=== PATIENT | male | born 1940 | race Caucasian/White ===

== ENCOUNTER 2024-03-24 22:57 | Inpatient (IN) | payer MEDICARE, OTHER, SELFPAY ==
[2024-03-24] VITALS (7 sets, daily range): BP systolic 96–149; BP diastolic 64–85; BMI 25.6
[2024-03-24 18:19] LABS: % Basophils 0.3 % (0-2); % Eosinophils 0.1 % (0-6); % Immature Granulocytes 0.4 % (0-0.5); % Lymphocytes 18.5 % (20.5-51.1); % Monocytes 3.2 % (1.7-9.3); % Neutrophils 77.5 % (42.2-75.2); Absolute Immature Granulocytes 0.1 10^3/uL (0-0.05); Absolute Lymphocytes 2.5 10^3/uL (1.2-3.4); Absolute Monocytes 0.4 10^3/uL (0.1-0.6); Absolute Neutrophils 10.5 10^3/uL (1.4-6.5); Hematocrit 47.6 % (39.0-52.0); Hemoglobin 16.5 g/dL (13.0-18.0); Mean Corp Hgb Conc. 34.7 g/dL (33.0-37.0); Mean Corpuscular Hgb 33.3 pg (27.0-31.0); Mean Corpuscular Volume 96.2 fL (80.0-94.0); Mean Platelet Volume 10.2 fL (7.4-10.4); Nucleated Red Blood Cells % 0 % (-); Platelet Count 152 10^3/uL (130-400); Red Blood Cell Count 4.95 10^6/uL (4.70-6.10); Red Cell Dist. Width 14.6 % (11.5-14.5); White Blood Cell Count 13.6 10^3/uL (4.8-10.8)
[2024-03-24 18:35] LABS: Lactic Acid 3.8 mmol/L (0.7-2.0)
[2024-03-24 18:36] LABS: ALT (SGPT) 33 U/L (0-50); AST (SGOT) 23 U/L (17-59); Alkaline Phosphatase 83 U/L (38-126); Blood Urea Nitrogen 17 mg/dl (9-20); Calcium 10.1 mg/dl (8.4-10.2); Carbon Dioxide 28 mmol/L (22-30); Chloride 97 mmol/L (98-107); Glucose 107 mg/dl (70-99); Potassium 3.9 mmol/L (3.5-5.1); Sodium 140 mmol/L (135-145); Total Bilirubin 1.1 mg/dl (0.2-1.3); Total Protein 7.4 g/dl (6.3-8.2); eGFR > 60.00
[2024-03-24 18:49] LABS: COVID-19 Antigen Negative (Negative)
--- NOTE | 2024-03-24 20:00 | ED.GENMED ---
History of Present Illness
General
Chief Complaint: Fever
Source: patient, spouse and family
Time Seen by Provider: 03/24/24 19:43
History of Present Illness
History of Present Illness:
83-year-old male presents the emergency department after being noted to have a fever of 102 at approximately 4 AM this morning associated with 'disorientation' not typical of his baseline dementia. gave him Tylenol and he went back to bed. He
woke at 11:30 AM and ate breakfast and was given a repeat dose of Tylenol. states that he slept throughout the day and then when he woke up just prior to presentation she noted that he was shaking similar when he had sepsis in the past.
Patient denies any complaints. There is no history of recent sore throat, cough, urinary symptoms, abdominal pain, chest pain, dyspnea, or other complaints.
Past History
Past History
ED Past Medical History: Other (Dementia)
ED Past Surgical History: None
Social History
Tobacco: Non-smoker
Alcohol: None
Drug: None
Personal:
Living: with family
Phy Exam
Physical Exam
Physical Exam:
GENERAL: Alert , in no apparent distress
EYE: pupils equal and reactive, no photophobia
NECK: Supple, no significant adenopathy.
ENT: o/p clr, mm slightly dry
CARDIAC: Regular rate and rhythm, slightly tachycardic.
LUNGS: Equal breath sounds bilaterally, no acute respiratory distress, slight Rales noted at left base no wheezing or rhonchi noted
ABDOMEN: Soft, without focal tenderness, no r/g, no cvat
NEUROLOGICAL: Alert and oriented to person otherwise baseline dementia, no focal neuro deficits otherwise, [id number] normal, motor strength intact throughout, sensory intact to light touch
SKIN: Warm and dry, skin intact.
MUSCULOSKELETAL: No edema, well perfused.
PSYCH: Normal and appropriate interaction.
Sepsis
Sepsis Screening
Sepsis Assessment: Sepsis
Sepsis Screening: Lactate >2mmol/L
Sepsis Screen
Sepsis Screen: Sepsis
Date: 03/25/24
Time: 02:29
Course
Orders/Labs/Results
Orders:
Orders
03/24/24 17:51
Electrocardiogram (*1) Urgent
Reason for Study: Other
Other Reason for Exam: Possible Sepsis
03/24/24 17:52
EKG- Treatment ONCE
03/24/24 18:12
COVID-19 Antigen Urgent
Source: Nasal Swab
Complete Blood Count/With Diff Urgent
Comprehensive Metabolic Panel Urgent
Lactic Acid Urgent
Influenza A+B Rapid Molecular Urgent
AHMET Source: Nasal Swab
Specimen Description:
03/24/24 19:59
0.9% Sodium Chloride 1000 ml [Nss] 1,500 ml IV BOLUS
Acetaminophen [Tylenol] 1,000 mg PO NOW STA
CR Chest - 2 Views Urgent
Comment:
Reason For Exam: fever, rales L base
03/24/24 20:38
Blood Culture Routine
AHMET Source: Blood/Venous
Specimen Description:
Blood Culture Urgent
AHMET Source: Blood/Venous
Specimen Description:
03/24/24 20:49
0.9% Sodium Chloride 250 ml [Nss] 250 ml IV BOLUS
03/24/24 20:56
Urinalysis Reflex To Culture Urgent
Date Specimen was Collected: 03/24/24
Time Specimen was Collected: 20:55
Urine Microscopic Reflex Cult Urgent
03/24/24 21:37
Piperacillin/Tazo 4.5 Gram [Zosyn] 4.5 gram in 100 ml IV NOW
03/24/24 21:47
Vancomycin [Vancocin] 2,000 mg 0.9% Sodium Chloride 500 ml [Nss] 500 ml IV NOW
03/24/24 22:00
Flush (0.9% Sodium Chloride) [Flush (Nss)] See Dose Instructions IV PER PROTOCOL
03/24/24 22:25
Admit/Transfer Patient As Directed
Co-Sign Provider:
Level of Care: Inpatient admission
Assign to:: IMU- Intermediate Care
Physician / Group: nisha
Diagnosis: sepsis
Reason for Hospitalization: sepsis
Expected length of stay greater than two midnights?: Yes
ELOS- Estimated Length of Stay in days: 2
I certify the patient meets the requirements for IP care: Yes
03/24/24 22:27
Code Status As Directed
Resuscitation Status: Do not resuscitate
Reached after discussion with pt or family/Healthcare POA: Yes
DNR Bracelet Application ONCE
PRN Pain Medication Management As Directed
May give lesser potent ordered pain med per pt: Yes
preference::
Protocol:: Medication orders for pain may be administered in a
manner that supports deferring to patient preference
when the pt is:
- Requesting an ordered lesser potent pain medication.
Least to most potent pain medications are defined
as: acetaminophen < NSAID < tramadol < opioids
(morphine, oxycodone, hydromorphone).
- Requesting a lesser dose of the same medication IF
ORDERED.
- Requesting a less intrusive route of administration
if both routes are prescribed by the provider (PO <
IV).
03/25/24 00:08
0.9% Sodium Chloride 1000 ml [Nss] 1,000 ml IV 100 mls/hr
Acetaminophen [Tylenol] 650 mg PO Q4HPRN PRN
Dextrose 50%-Water [Dextrose 50% Syringe] 12.5 grams IV [id number] PRN
Glucagon [GlucaGen] 1 mg IM PRN PRN
Ondansetron Injectable [Zofran] 4 mg IV Q6HPRN PRN
VANCOMYCIN Pharmacy to Dose [VANCOCIN Pharmacy to Dose] 1 each Pharmacy To Prepare [Call Pharmacy To Prepare] 0 ml IV PER PROTOCOL
03/25/24 00:08
Activity As Directed
Activity Level: As Tolerated
Bedside Glucose Monitoring As Directed
Frequency: AC&HS
Additional Instructions:: Change to q6h if pt on TPN, tube feeding or not eating
Vital Signs As Directed
Frequency: Per unit guidelines
DX Deep Vein Thrombosis Video Routine
03/25/24 04:00
Piperacillin/Tazo 3.375 Gram [Zosyn] 3.375 gram in 50 ml IV Q6H
03/25/24 06:00
Complete Blood Count/With Diff IN AM
Comprehensive Metabolic Panel IN AM
Glycohemoglobin (HgbA1c) IN AM
03/25/24 07:30
Insulin Aspart Corrective Low [Novolog Flexpen-Low Resistance] See Protocol SC AC
03/25/24 08:00
Allopurinol [Zyloprim] 300 mg PO DAILY
Ascorbic Acid [Vitamin C] 500 mg PO DAILY
Brimonidine Tartrate/Timolol [Combigan Eye Drops] 1 drop BOTH EYES BID
Calcium Carbonate [Oscal Surjit 500] 500 mg PO DAILY
Heparin 5,000 units SC Q12
03/25/24 12:00
Cholecalciferol (Vitamin D3) [VITAMIN D3 (cholecalciferol)] 50 mcg PO NOON
Cyanocobalamin [Vitamin B-12] 1,000 mcg PO NOON
Multivitamin [Theragran] 1 tablet PO NOON
03/25/24 Dinner
2000 calorie (17 carb) Diabetic
At Your Request: Limited Participation
03/25/24 18:00
Atorvastatin [Lipitor] 10 mg PO QPM
03/25/24 22:00
Latanoprost [Xalatan Ophthalmic Solution] 1 drop BOTH EYES HS
Abnormal Lab Results
03/24/24 03/24/24
18:12 20:56
WBC 13.6 H 10^3/uL
(4.8-10.8)
MCV 96.2 H fL
(80.0-94.0)
MCH 33.3 H pg
(27.0-31.0)
RDW 14.6 H %
(11.5-14.5)
Abs Immat Gran (auto) 0.1 H 10^3/uL
(0-0.05)
Absolute Neuts (auto) 10.5 H 10^3/uL
(1.4-6.5)
Neutrophils % 77.5 H %
(42.2-75.2)
Lymphocytes % 18.5 L %
(20.5-51.1)
Chloride 97 L mmol/L
(98-107)
Glucose 107 H mg/dl
(70-99)
Lactic Acid 3.8 H mmol/L
(0.7-2.0)
Ur Occult Blood Reflex 4+ A
(Negative)
Leukocyte Esterase Rfl Trace A
(Negative)
Urine RBC >100 A /HPF
(0-2)
Urine Bacteria (Reflex) Few A
(Negative)
Urine Glucose 1+ A
(Negative)
03/24/24 18:12
03/24/24 18:12
Vital Signs
Initial and Last Documented VS:
Initial Vital Signs
Temp Pulse Resp BP Pulse Ox
98.1 F 104 20 149/79 95
03/24/24 17:51 03/24/24 17:51 03/24/24 17:51 03/24/24 17:51 03/24/24 17:51
Last Documented Vital Signs
Temp Pulse Resp BP Pulse Ox
98.8 F 79 20 140/82 94
03/25/24 00:30 03/25/24 01:45 03/25/24 01:45 03/25/24 01:00 03/25/24 01:45
*Critical Care Note
Total Time (30-74mins, 75-104mins- exclusive of procedures): Not Applicable
Update Note
Update Note:
Patient presents to the Emergency Department with __fever and confusion
Number and Complexity of Problems Addressed at the Encounter
� Chronic conditions affecting care:
� Acute Exacerbation and/or Progression of Chronic Illness:
� Differential Diagnosis includes: But not limited to sepsis, metabolic encephalopathy, pneumonia, UTI, COVID, etc. etc.
Amount and/or Complexity of Data to be Reviewed and Analyzed
� I performed an independent evaluation of and my interpretation is:
EKG:read by me, sinus tachy, no acute ischemia noted
CT:
Xrays:CXR READ by me, nad (unchange prior)
Laboratory Studies:new leukocytosis, elevated lactic, u/a not entirely convincing for UTI, hematuria noted
Other:
� Review of other/old records reveals: Patient hospitalized May 2023 with acute encephalopathy and similar symptoms
� Clinical information was obtained by an independent historian: and daughter who are at bedside
� Prescriptions/Medications Considered but not given:
� Further testing considered but not performed:
Risk of Complications and/or Morbidity or Mortality of Patient Management
� Social determinants of health affecting care:
� Discussion with other providers (PCP, Hospitalists, Consultants, etc):
� Escalation of care including admission/observation vs risk of discharge considered:overall suspect metabolic encephalopathy due to infction, unclear source. Although rales noted L base, no cough/st/dyspnea/hypoxia/cxr
findings. Follow blood csx, admit for further monitoring/ivf/abx for sepsis unclear origin
ED Attending Note
-
Portions of this chart may have been created with voice recognition software.� Occasional wrong word or��sound alike� substitutions may have occurred due to the inherent limitations of voice recognition software.
Discharge Plan
Departure
Patient Disposition: Admit
Date of Disposition: 03/24/24
Time of Disposition: 21:38
Admit to: Telemetry
Presentation/result/management discussed w/ accepting MD/DO: Hospitalist
Condition: Fair
Discharge Problem:
Sepsis
Interventions
Interventions:
*General Assessment Last Done: 03/24/24 19:46
*Neglect/Abuse Screening Last Done: 03/24/24 19:46
ED- Fall Risk Assessment Last Done: 03/24/24 20:46
*Nursing Disposition Last Done: 03/25/24 00:02
ED- Neurological Assessment Last Done: 03/24/24 19:44
ED-Skin Assessment Last Done: 03/24/24 19:44
Discharge Date and Time
Discharge Date/Time: 03/25/24 00:02
[2024-03-24] MEDS: TYLENOL 1000 MG PO (20:36)
[2024-03-24] MEDS: NSS 1500 IV (20:37)
--- NOTE | 2024-03-24 20:45 | EDRN ---
RN attempted straight catheterization x 2, using both regular catheter and coude catheter, unsuccessful. Perineal hygiene complete, [place] external male catheter placed.
[2024-03-24 21:00] LABS: Urine Albumin Trace (Neg - Trace); Urine Bilirubin Negative (Negative); Urine Character Slightly Cloudy (Clear); Urine Color Yellow; Urine Glucose 1+ (Negative); Urine Ketone Negative (Negative); Urine Leukocyte Trace (Negative); Urine Nitrite Negative (Negative); Urine Occult Blood 4+ (Negative); Urine Specific Gravity 1.015 (<1.030); Urine Urobilinogen Negative (Neg - 1+)
[2024-03-24 21:06] LABS: Urine Red Blood Cell >100 /HPF (0-2)
[2024-03-24 21:07] LABS: Urine Bacteria Few (Negative)
[2024-03-24] MEDS: NSS 250 IV (21:28)
[2024-03-24] MEDS: ZOSYN 100 IV (21:49)
[2024-03-24] MEDS: VANCOCIN 540 MG IV (22:25)
--- NOTE | 2024-03-24 22:38 | HPS.HSE ---
Family Physician
-
Family Physician: Sohail Ma
Chief Complaint
-
fever
History of Present Illness
83-year-old male past medical history of dementia, gout, hypertension, hyperlipidemia, diabetes, presenting with fever of 102 this morning associate with disorientation which is not typical of his baseline dementia. gave him Tylenol and he
went back to bed. He woke up at 1130 and took another dose of Tylenol. He slept throughout the day and woke up just prior to presentation with chills. He denies sore throat, cough, urinary symptoms, abdominal pain, chest pain or shortness of
breath or any other symptoms.
Patient chipped a piece of his tooth a few days ago and did complain of some mild discomfort but denies any swelling in the mouth.
Patient denies any history of hardware in his body including artificial valve or hip.
Patient had sepsis in 2019 while he was in [place] and no source was found at that time either.
Medical History
Past Medical History
Past Medical History: Reports Other (dementia, gout, hypertension, hyperlipidemia, diabetes)
Past Surgical History: Reports None
Social History
Tobacco: Non-smoker
Alcohol: None
Drug: None
Family History
Family History: Not pertinent
Allergies / Home Medications
Allergies reflects when Allergies were last updated in [employer].
Home Medications with original date entered in [facility]
Allergy/Medication List:
Allergies
Allergy/AdvReac Type Severity Reaction Status Date / Time
Sulfa (Sulfonamide Allergy Unknown Unknown Verified 03/24/24 17:55
Antibiotics)
NSAIDS (Non-Steroidal Allergy Johnson Verified 03/24/24 17:55
Anti-Inflamma [place]
Home Medications
allopurinol 300 mg tablet 300 mg PO DAILY Gout 06/25/23
amlodipine 5 mg tablet (Norvasc) 5 mg PO DAILY Blood Pressure 06/25/23
atorvastatin 10 mg tablet (Lipitor) 10 mg PO QPM High Cholesterol 06/25/23
bimatoprost 0.01 % eye drops (Lumigan) 1 drp BOTH EYES HS Eye Condition 06/25/23
brimonidine 0.2 %-timolol 0.5 % eye drops (Combigan) 1 drp BOTH EYES BID Eye Condition 06/25/23
cholecalciferol (vitamin D3) 25 mcg (1,000 unit) chewable tablet (Vitamin D3) 50 mcg PO NOON Supplement 06/25/23
cyanocobalamin (vitamin B-12) 1,000 mcg sublingual lozenge 1,000 mcg sublingual NOON Supplement 06/25/23
gabapentin 800 mg tablet 400 mg PO BID Neurological Condition 06/25/23
glipizide 10 mg tablet, extended release 24 hr 20 mg PO DAILY Diabetes 06/25/23
indapamide 2.5 mg tablet 2.5 mg PO DAILY Fluid Retention/Swelling 06/25/23
lisinopril 40 mg tablet 40 mg PO DAILY Blood Pressure 06/25/23
metformin 500 mg tablet,extended release 24hr (osmotic) 1,000 mg PO BID@0800,1700 Diabetes 06/25/23
vnzximdl-csmdasqi-ltrm 8 mg-folic ac 400 mcg-vit K 10 mcg chew tablet (Centrum Chewables) 1 tab PO NOON Supplement 06/25/23
netarsudil 0.02 % eye drops (Rhopressa) 1 drp BOTH EYES HS Eye Condition 06/25/23
saw palm 160 mg-vit E 100 unit-selen 100 mae-myen-tdidxu-pygeum tablet (Prostate Health) 1 tab PO QPM Supplement 06/25/23
ascorbic acid (vitamin C) 500 mg chewable tablet (Vitamin C) 500 mg PO DAILY 03/24/24
calcium carbonate (Calcium 500) 500 mg PO DAILY 03/24/24
Review of Systems
-
History Source: Patient
A 12 point ROS was completed and negative except as noted: Yes
Constitutional: Reports Fever
EENT: Reports No Symptoms
Respiratory: Reports No Symptoms
Cardiac: Reports No Symptoms
Abdomen/GI: Reports No Symptoms
: Reports No Symptoms
Musculoskeletal: Reports No Symptoms
Skin: Reports No Symptoms
Neurological: Reports No Symptoms
Endocrine: Reports No Symptoms
Hematologic/Lymphatic: Reports No Symptoms
Psych: Reports No Symptoms
Physical Exam
Vital Signs
Vital Signs
Temp Pulse Resp BP Pulse Ox
98.9 F 85 16 96/64 94
03/24/24 21:34 03/24/24 22:00 03/24/24 22:00 03/24/24 22:00 03/24/24 22:00
Physical Exam
General: Well Developed, Well Nourished and No Apparent Distress
HEENT: NormoCephalic, Moist mucous membranes and Atraumatic
Respiratory: Clear
Cardiac: S1/S2 and Regular Rhythm; No Murmur or Rub
GI: Soft, Non Tender, Non Distended and Normal Bowel Sounds; No Organomegaly
Rectal: Deferred by Provider
Musculoskeletal: No Clubbing, No Cyanosis and No Edema
Skin: No Rash
Neuro: Nonfocal/grossly intact
Laboratory Results
-
03/24/24 18:12
03/24/24 18:12
Laboratory Results
Lactic Acid 3.8 mmol/L (0.7-2.0) H 03/24/24 18:12
Total Bilirubin 1.1 mg/dl (0.2-1.3) 03/24/24 18:12
AST 23 U/L (17-59) 03/24/24 18:12
ALT 33 U/L (0-50) 03/24/24 18:12
Alkaline Phosphatase 83 U/L (38-126) 03/24/24 18:12
Data Reviewed
-
Lab Data: Labs Reviewed by me
Old Records: Reviewed
Impression/Plan
-
IMPRESSION:
PLAN:
# SIRS (fever, leukocytosis, hypotension)/metabolic encephalopathy unclear source, evaluate for bacteremia
-No clear localizing symptoms
-Chest x-ray unremarkable
-Urinalysis not convincing for UTI
-Check blood cultures
-IV fluids
-Vancomycin/Zosyn
-Hold gabapentin
-Hold indapamide
Dementia
Essential hypertension
-Hold amlodipine
-Hold lisinopril
Gout
-Continue allopurinol
Hyperlipidemia
-Continue statin
Lower extremity edema
-Hold indapamide
Type 2 diabetes
-Hold glipizide
-Hold metformin
-Insulin sliding scale
DNR/DNI
DVT prophylaxis heparin
Diabetic diet
[2024-03-25] VITALS (18 sets, daily range): BP systolic 116–150; BP diastolic 61–92; PULSE 81; O2SAT 94; BMI 26.4
[2024-03-25 00:17] LABS: Lactic Acid 3.1 mmol/L (0.7-2.0)
[2024-03-25] MEDS: NSS 1000 IV ×2 (01:02→09:15)
--- NOTE | 2024-03-25 01:10 | PTCARENOTE ---
patient received from ED, assessments per work list. poor historian, forgetful. bladder scan per work list. hospitalist PARALEGAL INSTRUCTOR updated. patient stood at bedside, he was unable to void, unsteady gait. attempted straight cath, unable. patient then
spontaneously voided in urinal with assist. PVR per work list. PARALEGAL INSTRUCTOR updated. monitor nsr with pvc. lungs with crackles left base. call palacio in reach, bed alarm activated
[2024-03-25] MEDS: ZOSYN 50 IV ×4 (02:54→21:00)
[2024-03-25 04:35] LABS: % Basophils 0.2 % (0-2); % Eosinophils 0.2 % (0-6); % Immature Granulocytes 0.4 % (0-0.5); % Lymphocytes 22.8 % (20.5-51.1); % Monocytes 4.2 % (1.7-9.3); % Neutrophils 72.2 % (42.2-75.2); Absolute Lymphocytes 1.9 10^3/uL (1.2-3.4); Absolute Monocytes 0.4 10^3/uL (0.1-0.6); Hematocrit 40.6 % (39.0-52.0); Hemoglobin 14.2 g/dL (13.0-18.0); Mean Corpuscular Hgb 33.9 pg (27.0-31.0); Mean Corpuscular Volume 96.9 fL (80.0-94.0); Mean Platelet Volume 10.4 fL (7.4-10.4); Nucleated Red Blood Cells % 0 % (-); Platelet Count 120 10^3/uL (130-400); Red Blood Cell Count 4.19 10^6/uL (4.70-6.10); Red Cell Dist. Width 14.6 % (11.5-14.5); White Blood Cell Count 8.3 10^3/uL (4.8-10.8)
[2024-03-25 04:53] LABS: ALT (SGPT) 28 U/L (0-50); AST (SGOT) 26 U/L (17-59); Albumin 3.7 g/dl (3.5-5.0); Alkaline Phosphatase 64 U/L (38-126); Blood Urea Nitrogen 16 mg/dl (9-20); Calcium 8.7 mg/dl (8.4-10.2); Carbon Dioxide 27 mmol/L (22-30); Chloride 103 mmol/L (98-107); Estimated Creatinine Clearance 59 ml/min; Glucose 69 mg/dl (70-99); Potassium 3.8 mmol/L (3.5-5.1); Sodium 141 mmol/L (135-145); Total Bilirubin 1.1 mg/dl (0.2-1.3); Total Protein 5.9 g/dl (6.3-8.2); eGFR > 60.00
[2024-03-25 05:56] LABS: Glucose - Point of Care 92 mg/dl (70-99)
--- NOTE | 2024-03-25 08:00 | PTCARENOTE ---
Assumed care of patient at 0645, assessment completed and documented appropriately on worklist.
Patient is pleasant, AAOx3 and forgetful at times. NS at 100 mL/hour infusing through R FA. SR on monitor.
--- NOTE | 2024-03-25 08:19 | PHA.VAN.IN ---
Assessment
- Assessment
Renal Function: Appears similar to baseline
Concomitant Antimicrobials: piperacillin/tazobactam
AUC Dosing Plan
- Dosing Variables
Dosing Weight (kg): 83
Dosing CrCl (ml/min): 59
Vd coefficient (L/kg): 0.7
- Empiric Dosing
Initial / Loading Dose: 2000mg - 03/24 22:25
Maintenance Regimen: Vanc 1500mg Q24H - first dose at noon then 0600
Estimated AUC (mcg*h/mL): 503
Estimated Peak (mcg*h/mL): 35.7
Estimated Trough (mcg/ml): 10.8
Estimated Half Life (H): 13
May require dose adjustment depending on trend of renal function
- Monitoring
No levels ordered at this time: consider levels in next few days
Pharmacokinetics Vancomycin I
- -
Patient Age: 83
Patient Sex: Male
Vancomycin Day #: 1
Indication: Bacteremia
Requesting Provider: Dr. Shah
Pertinent Antimicrobial Allergies:
sulfonamide antibiotics - unknown
Height / Weight:
Height 5 ft 10 in
Actual Weight 83.461 kg
Pertinent Past Medical History: DM 2
- Vital Signs / Lab Results
Temp Pulse Resp BP Pulse Ox
99 F 92 25 138/83 94
03/25/24 07:45 03/25/24 07:00 03/25/24 07:00 03/25/24 07:00 03/25/24 07:00
Lab Results - Hematology
03/24/24 03/25/24
18:12 04:05
WBC 13.6 H 8.3
Lab Results - Chemistry
03/24/24 03/25/24
18:12 04:05
BUN 17 16
Creatinine 1.2 1.0
Estimated Creat Clear 59
Albumin 5.0 3.7
03/24/24 03/24/24 03/25/24
18:12 23:59 04:05
Lactic Acid 3.8 H 3.1 H 2.0
Lab Results - Urine
03/24/24
20:56
Urine Nitrite (Reflex) Negative
Leukocyte Esterase Rfl Trace A
Urine WBC (Reflex) 3-5
Ur Squamous Epith Cells 3-5
Urine Bacteria (Reflex) Few A
Microbiology Results
03/24/24 18:12 Influenza Types A & B (MANUEL) - Final
Nasal Swab Negative for Influenza A & B, NAAT
Negative results must be combined with clinical observations
and patient history.
Nucleic Acid Amplification test (NAAT)performed on the
[employer] ID NOW platform.
[2024-03-25] MEDS: OSCAL CAL 500 500 MG PO (08:59)
[2024-03-25] MEDS: HEPARIN 5000 UNITS SC (08:59)
[2024-03-25] MEDS: VITAMIN C 500 MG PO (08:59)
[2024-03-25] MEDS: COMBIGAN EYE DROPS 1 DROP BOTH EYES ×2 (08:59→20:57)
[2024-03-25] MEDS: ZYLOPRIM 300 MG PO (08:59)
[2024-03-25 09:08] LABS: Glycohemoglobin (HgbA1c) 6.6 % (4.0-5.6)
[2024-03-25] MEDS: NOVOLOG FLEXPEN-LOW RESISTANCE SC ×2 (09:18→11:54)
[2024-03-25 09:29] LABS: Glucose - Point of Care 99 mg/dl (70-99)
--- NOTE | 2024-03-25 10:00 | PTCARENOTE ---
Noted red raised markings on left and right arm. Notified covering provider. Patient unsure where they came from. Does not hurt, no drainage.
--- NOTE | 2024-03-25 10:22 | W.PN.HOSP.TC ---
Today's Communication/Plan
-
dc vanc
await Bcx data
Transfer out of IMU
Rehab
DC fluids and observe
Assessment / Plan
Assessment / Plan
# SIRS (fever, leukocytosis, hypotension) unclear source, r/o bacteremia versus viral infection
#Toxic metabolic encephalopathy likeely 2/2 fevers vs. gabapentin vs. worsening underlying cognitive impairment
#Lactic acidosis resolved
-No clear localizing symptoms
-Chest x-ray unremarkable
-Urinalysis not convincing for UTI
-COVID and influenza negative.
-Check blood cultures
-IV fluids
-De-escalate antibiotics on culture data. No prior history of myself. DC Vanco. Continue Zosyn for 24 hours for now
-Hold gabapentin
-Trend WBC and fever curve. Leukocytosis resolved.
Essential hypertension
-Blood pressure slowly starting to improve. Restart BP meds Norvasc and lisinopril with hold parameters
Gout
-Continue allopurinol
Hyperlipidemia
-Continue statin
Lower extremity edema
-Hold indapamide
Type 2 diabetes
-Hold glipizide
-Hold metformin
-A1c of 6.6
-Insulin sliding scale
'
Thrombocytopenia
-dc hep for now.
Hx of porphyria unspecfified type
DNR/DNI
DVT prophylaxis scds with platelet drop
PT/OT
Anticipated Discharge: > 48 hours
Subjective/Interval History
-
Date of Service: March 25, 2024
Feeling mildly better
Denies any sore throat or productive cough or diarrhea or dysuria
Denies any sick contact
Objective Data
-
Labs:
Laboratory Results
03/25/24
04:05
WBC 8.3
Hgb 14.2
Hct 40.6
Plt Count 120 L D
Sodium 141
Potassium 3.8
Chloride 103
Carbon Dioxide 27
BUN 16
Creatinine 1.0
Glucose 69 L
Calcium 8.7
Total Bilirubin 1.1
AST 26
ALT 28
Alkaline Phosphatase 64
Vital Signs:
Vital Signs
Temp Pulse Resp BP Pulse Ox
99 F 86 15 141/89 93
03/25/24 07:45 03/25/24 10:00 03/25/24 10:00 03/25/24 10:00 03/25/24 08:00
I&O
03/24/24 03/25/24 03/26/24
06:59 06:59 06:59
Intake Total 550 / 650 300 / 300
Output Total 695 / 695 500 / 500
Balance -145 / -45 -200 / -200
Physical Exam
-
General: Well Developed, Well Nourished, No Apparent Distress, Comfortable and Conversant; Negative Respiratory Distress
HEENT: Normocephalic, Atraumatic, Nose Appears Normal and Ears Appear Normal; Negative Oxygen
Respiratory: Clear to Auscultation and Non Labored Respirations; Negative Accessory Resp Muscle Use
Cardiac: Regular Rhythm and S1/S2
GI: Soft, Nontender, Nondistended and Normal Bowel Sounds
Skin: Warm, Dry and Rash
Neuro: Awake and No Motor Deficits
Psych: Calm
Data Reviewed
-
Total Time Spent with Patient (in minutes): 56
[2024-03-25 12:05] LABS: Glucose - Point of Care 120 mg/dl (70-99)
[2024-03-25] MEDS: VITAMIN D3 (cholecalciferol) 50 MCG PO (12:36)
[2024-03-25] MEDS: VITAMIN B-12 1000 MCG PO (12:36)
[2024-03-25] MEDS: THERAGRAN 1 TABLET PO (12:36)
--- NOTE | 2024-03-25 13:25 | PTCARENOTE ---
Report given to Carl on 4W. Assisted patient into WC. Taken to 4W by Transport.
--- NOTE | 2024-03-25 13:37 | TRANSFER ---
Patient transferred from ICU into room 417-1. Pt AAOx3 with history of dementia, bed alarm activated. Pt feels 'great' and denies any acute complaints at this time. Oriented to room, call palacio within reach.
[2024-03-25 14:20] LABS: Glucose - Point of Care 225 mg/dl (70-99)
[2024-03-25 17:11] LABS: Glucose - Point of Care 247 mg/dl (70-99)
[2024-03-25] MEDS: NOVOLOG FLEXPEN-LOW RESISTANCE 2 UNITS SC (17:27)
[2024-03-25] MEDS: LIPITOR 10 MG PO (17:27)
[2024-03-25] MEDS: NON-FORMULARY ITEM 1 DROP BOTH EYES (20:59)
[2024-03-25] MEDS: XALATAN OPHTHALMIC SOLUTION 1 DROP BOTH EYES (20:59)
[2024-03-26] MEDS: ZOSYN 50 IV ×2 (03:11→10:24)
[2024-03-26 07:00] VITALS: BP 136/79
[2024-03-26 08:45] LABS: % Basophils 0.5 % (0-2); % Eosinophils 1.8 % (0-6); % Immature Granulocytes 0.5 % (0-0.5); % Lymphocytes 35.7 % (20.5-51.1); % Monocytes 8.3 % (1.7-9.3); % Neutrophils 53.2 % (42.2-75.2); Absolute Eosinophils 0.1 10^3/uL (0-0.7); Absolute Lymphocytes 2.1 10^3/uL (1.2-3.4); Absolute Monocytes 0.5 10^3/uL (0.1-0.6); Absolute Neutrophils 3.2 10^3/uL (1.4-6.5); Hematocrit 38.7 % (39.0-52.0); Hemoglobin 13.6 g/dL (13.0-18.0); Mean Corp Hgb Conc. 35.1 g/dL (33.0-37.0); Mean Corpuscular Hgb 32.4 pg (27.0-31.0); Mean Corpuscular Volume 92.1 fL (80.0-94.0); Mean Platelet Volume 10.6 fL (7.4-10.4); Nucleated Red Blood Cells % 0 % (-); Platelet Count 128 10^3/uL (130-400); Red Cell Dist. Width 14.4 % (11.5-14.5)
[2024-03-26 09:11] LABS: Blood Urea Nitrogen 10 mg/dl (9-20); Calcium 8.8 mg/dl (8.4-10.2); Carbon Dioxide 22 mmol/L (22-30); Chloride 103 mmol/L (98-107); Estimated Creatinine Clearance 59 ml/min; Glucose 166 mg/dl (70-99); Potassium 3.6 mmol/L (3.5-5.1); Sodium 140 mmol/L (135-145); eGFR > 60.00
[2024-03-26 09:35] LABS: Glucose - Point of Care 155 mg/dl (70-99)
--- NOTE | 2024-03-26 10:07 | CM ---
Pt seen at beside. Pt has BL dementia but is oriented and alert.
Pt confirms that he lives in a 2 story home with his . Pt does not drive.
He does not use any DME at home, no hx of SNF or PT/OT services.
He confirms there is no transportation/food/home insecurities. His will transport home at d/c.
Pt confirms pharmacy is [facility] in [place]. PCP confirmed.
Pt agreeable to HC recommendation at d/c. States he will discuss HC agencies with .
Plan: Home with home care services
[2024-03-26] MEDS: NOVOLOG FLEXPEN-LOW RESISTANCE 1 UNITS SC ×2 (10:23→17:55)
[2024-03-26] MEDS: NORVASC 5 MG PO (10:24)
[2024-03-26] MEDS: ZESTRIL 40 MG PO (10:24)
[2024-03-26] MEDS: OSCAL CAL 500 500 MG PO (10:24)
[2024-03-26] MEDS: VITAMIN C 500 MG PO (10:24)
[2024-03-26] MEDS: COMBIGAN EYE DROPS 1 DROP BOTH EYES ×2 (10:26→20:30)
[2024-03-26] MEDS: ZYLOPRIM 300 MG PO (10:30)
--- NOTE | 2024-03-26 11:20 | W.PN.HOSP.TC ---
Today's Communication/Plan
-
restart DM meds
dc zosyn
Assessment / Plan
Assessment / Plan
# SIRS (fever, leukocytosis, hypotension) unclear source, r/o bacteremia versus viral infection
#Toxic metabolic encephalopathy likely 2/2 fevers vs. gabapentin vs. worsening underlying cognitive impairment
#Lactic acidosis resolved
-No clear localizing symptoms
-Chest x-ray unremarkable
-Urinalysis not convincing for UTI
-COVID and influenza negative.
-Check blood cultures-prelim is negative.
-IV fluids Dced
-De-escalate antibiotics on culture data. No prior history of myself. DC Vanco. Dc zosyn today
-restart gabapentin
-Trend WBC and fever curve. Leukocytosis resolved. Remains afebrile for 24h
Essential hypertension
-Blood pressure slowly starting to improve. Restart BP meds Norvasc and lisinopril with hold parameters
Gout
-Continue allopurinol
Hyperlipidemia
-Continue statin
Lower extremity edema
-restart indapamide
Type 2 diabetes
-Restart glipizide and metformin
-A1c of 6.6
-Insulin sliding scale
'
Thrombocytopenia
-dc hep for now.
-Platelets improving
Hx of porphyria unspecified type
DNR/DNI
DVT prophylaxis scds with platelet drop
PT/OT -Home VN
Anticipated Discharge: Within 24 hours
Subjective/Interval History
-
Date of Service: March 26, 2024
feeling alot better
afebrile
tolerating diet
no cough/nausea/vomiting/diarrhea/dysuria
Objective Data
-
Labs:
Laboratory Results
03/26/24
08:25
WBC 6.0
Hgb 13.6
Hct 38.7 L
Plt Count 128 L
Sodium 140
Potassium 3.6
Chloride 103
Carbon Dioxide 22
BUN 10
Creatinine 1.0
Glucose 166 H
Calcium 8.8
Vital Signs:
Vital Signs
Temp Pulse Resp BP Pulse Ox
98 F 72 20 136/79 95
03/26/24 07:00 03/26/24 07:00 03/26/24 07:00 03/26/24 07:00 03/26/24 07:00
I&O
03/25/24 03/26/24 03/27/24
06:59 06:59 06:59
Intake Total 550 / 650 880 / 880
Output Total 695 / 695 1800 / 1800
Balance -145 / -45 -920 / -920
Physical Exam
-
General: Well Developed, Well Nourished, No Apparent Distress, Comfortable and Conversant; Negative Respiratory Distress
HEENT: Normocephalic, Atraumatic, Nose Appears Normal and Ears Appear Normal; Negative Oxygen
Respiratory: Clear to Auscultation and Non Labored Respirations; Negative Accessory Resp Muscle Use
Cardiac: Regular Rhythm and S1/S2
GI: Soft, Nontender, Nondistended and Normal Bowel Sounds
Skin: Warm, Dry and Rash (Chronic B/L forearm thick macular rash noted)
Neuro: Awake and No Motor Deficits
Psych: Calm
[2024-03-26 12:06] LABS: Glucose - Point of Care 222 mg/dl (70-99)
[2024-03-26] MEDS: VITAMIN D3 (cholecalciferol) 50 MCG PO (12:17)
[2024-03-26] MEDS: NOVOLOG FLEXPEN-LOW RESISTANCE 2 UNITS SC (12:17)
[2024-03-26] MEDS: VITAMIN B-12 1000 MCG PO (12:17)
[2024-03-26] MEDS: THERAGRAN 1 TABLET PO (12:17)
--- NOTE | 2024-03-26 12:58 | VNURNOTE ---
Home Health Liaison met spoke with patient's spouse Lillian to discuss [facility] nurse/therapy, visits, schedule and homebound status. She is agreeable and understands that visits at home will be 2-3 x per week to assess and teach medical management. She
manages patient's meds and confirmed patient does not drive. She is aware that [facility] will contact them for start of care in 1-2 days after discharge from .
[facility] referral completed in [facility].
[2024-03-26 15:00] VITALS: BP 134/81
--- NOTE | 2024-03-26 15:03 | PTCARENOTE ---
Patient has no c/o pain, resting comfortably. Patient is OOB with assist x1, ambulated to door way and then bathroom with a weak but steady gait. Family at bedside.
[2024-03-26 16:58] LABS: Glucose - Point of Care 163 mg/dl (70-99)
[2024-03-26] MEDS: GLUCOPHAGE XR EXTENDED RELEASE 1000 MG PO (17:55)
[2024-03-26] MEDS: LIPITOR 10 MG PO (17:55)
[2024-03-26] MEDS: NEURONTIN 400 MG PO (20:30)
[2024-03-26 21:31] LABS: Glucose - Point of Care 163 mg/dl (70-99)
[2024-03-26] MEDS: XALATAN OPHTHALMIC SOLUTION 1 DROP BOTH EYES (22:16)
[2024-03-26] MEDS: NON-FORMULARY ITEM 1 DROP BOTH EYES (22:44)
[2024-03-26 23:39] VITALS: BP 115/58
[2024-03-27 07:06] VITALS: BP 162/84
[2024-03-27 07:14] LABS: % Basophils 0.6 % (0-2); % Eosinophils 2.2 % (0-6); % Immature Granulocytes 0.4 % (0-0.5); % Lymphocytes 47.9 % (20.5-51.1); % Monocytes 4.3 % (1.7-9.3); % Neutrophils 44.6 % (42.2-75.2); Absolute Eosinophils 0.2 10^3/uL (0-0.7); Absolute Lymphocytes 3.5 10^3/uL (1.2-3.4); Absolute Monocytes 0.3 10^3/uL (0.1-0.6); Absolute Neutrophils 3.2 10^3/uL (1.4-6.5); Hematocrit 42.8 % (39.0-52.0); Hemoglobin 15.1 g/dL (13.0-18.0); Mean Corp Hgb Conc. 35.3 g/dL (33.0-37.0); Mean Corpuscular Hgb 33.3 pg (27.0-31.0); Mean Corpuscular Volume 94.3 fL (80.0-94.0); Mean Platelet Volume 10.6 fL (7.4-10.4); Nucleated Red Blood Cells % 0 % (-); Platelet Count 137 10^3/uL (130-400); Red Blood Cell Count 4.54 10^6/uL (4.70-6.10); Red Cell Dist. Width 14.4 % (11.5-14.5); White Blood Cell Count 7.2 10^3/uL (4.8-10.8)
[2024-03-27 07:30] LABS: Glucose - Point of Care 162 mg/dl (70-99)
[2024-03-27] MEDS: NOVOLOG FLEXPEN-LOW RESISTANCE 1 UNITS SC (08:15)
[2024-03-27] MEDS: COMBIGAN EYE DROPS 1 DROP BOTH EYES (08:16)
[2024-03-27] MEDS: ZESTRIL 40 MG PO (08:16)
[2024-03-27] MEDS: GLUCOTROL XL (EXTENDED RELEASE) 20 MG PO (08:17)
[2024-03-27] MEDS: GLUCOPHAGE XR EXTENDED RELEASE 1000 MG PO (08:17)
[2024-03-27] MEDS: OSCAL CAL 500 500 MG PO (08:17)
[2024-03-27] MEDS: NORVASC 5 MG PO (08:17)
[2024-03-27] MEDS: LOZOL 2.5 MG PO (08:17)
[2024-03-27] MEDS: NEURONTIN 400 MG PO (08:18)
[2024-03-27] MEDS: VITAMIN C 500 MG PO (08:18)
[2024-03-27] MEDS: ZYLOPRIM 300 MG PO (08:21)
--- NOTE | 2024-03-27 09:56 | W.PN.HOSP.TC ---
Today's Communication/Plan
-
dc home
Assessment / Plan
Assessment / Plan
# Sepsis (fever, leukocytosis, hypotension) secondary to viral infection-poa
#Toxic metabolic encephalopathy likely 2/2 fevers vs. gabapentin vs. worsening underlying cognitive impairment
#Lactic acidosis resolved
-No clear localizing symptoms
-Chest x-ray unremarkable
-Urinalysis not convincing for UTI
-COVID and influenza negative.
-Blood culture remains negative.
-IV fluids Dced
-De-escalate antibiotics on culture data. Patient remained afebrile off antibiotics.
-restart gabapentin
-Trend WBC and fever curve. Leukocytosis resolved. Remains afebrile
Essential hypertension
Restart BP meds Norvasc and lisinopril with hold parameters
Gout
-Continue allopurinol
Hyperlipidemia
-Continue statin
Lower extremity edema
-restart indapamide
Type 2 diabetes
-Restart glipizide and metformin
-A1c of 6.6
-Insulin sliding scale
'
Thrombocytopenia
-dc hep for now.
-Platelets improved.
Hx of porphyria unspecified type
DNR/DNI
DVT prophylaxis scds with platelet drop
PT/OT -Home [facility]
More than 30 minutes spent in discharge including
Final examination of the patient
Summarizing hospital stay
Instructions for continuing care to all relevant caregivers
Preparation of discharge records, prescriptions, and referral forms
Total time spent (in minutes): 53
Anticipated Discharge: Today
Subjective/Interval History
-
Date of Service: March 27, 2024
Slept well last night
Remains afebrile
Tolerating diet
Objective Data
-
Labs:
Laboratory Results
03/27/24
06:05
WBC 7.2
Hgb 15.1
Hct 42.8
Plt Count 137
Vital Signs:
Vital Signs
Temp Pulse Resp BP Pulse Ox
98.2 F 64 18 162/84 98
03/27/24 07:06 03/27/24 08:16 03/27/24 07:06 03/27/24 08:16 03/27/24 07:06
I&O
03/26/24 03/27/24 03/28/24
06:59 06:59 06:59
Intake Total 880 / 880 1010 / 1010
Output Total 1800 / 1800 400 / 400
Balance -920 / -920 610 / 610
Physical Exam
-
General: Well Developed, Well Nourished, No Apparent Distress, Comfortable and Conversant; Negative Respiratory Distress
HEENT: Normocephalic, Atraumatic, Nose Appears Normal and Ears Appear Normal; Negative Oxygen
Respiratory: Clear to Auscultation and Non Labored Respirations; Negative Accessory Resp Muscle Use
Cardiac: Regular Rhythm and S1/S2
GI: Soft, Nontender, Nondistended and Normal Bowel Sounds
Skin: Warm, Dry and Rash (Chronic B/L forearm thick macular rash noted)
Neuro: Awake and No Motor Deficits
Psych: Calm
--- NOTE | 2024-03-27 10:00 | W.DCSUMMARY ---
Discharge Summary
Discharge Data
Date of Admission: 03/24/24
Date of Discharge: 03/27/24
-
Pending Results: No
Hospital Course
83-year-old male past medical history of hypertension, CAD, hyperlipidemia, diabetes melitis, Hx of porphyria unspecified type was presenting from home with fever and confusion. Patient underwent infectious workup. UA which was not convincing for
UTI. COVID and influenza was found to be negative. Blood cultures were checked and found to be negative. No cough. No diarrhea. No dysuria. No abdomen pain or flank pain. Patient was started initially on broad-spectrum antibiotics.
Antibiotics were slowly de-escalated. Patient remained afebrile for greater than 48 hours. IV fluids were discontinued. Patient mentation back to baseline. White count within normal limits. Patient blood pressure meds were restarted. Patient
was tolerating diet. Patient remained afebrile off antibiotics and thus, is likely a viral infection. Patient be discharged home with [facility].
Discharge Plan
-
Patient Disposition: Home with Home Care
Discharge Diagnosis/Procedures: Toxic metabolic encephalopathy
Fevers secondary to viral infection
Thrombocytopenia resolved
Lactic acidosis
Condition: Fair
Diet: Diabetic, Carb Controlled
Activity: With assistance and As tolerated
Driving Restrictions: As prior to admission
Other Services: [facility]
Referrals:
Sohail Ma MD [Family Provider] - in less than 1 week
Prescriptions:
Continued
atorvastatin [Lipitor] 10 mg Tablet
10 mg PO QPM
indapamide 2.5 mg Tablet
2.5 mg PO DAILY
glipizide 10 mg Tablet Extended Release 24hr
20 mg PO DAILY
amlodipine [Norvasc] 5 mg Tablet
5 mg PO DAILY
gabapentin 800 mg Tablet
400 mg PO BID
allopurinol 300 mg Tablet
300 mg PO DAILY
lisinopril 40 mg Tablet
40 mg PO DAILY
metformin 500 mg Tablet Extended Release 24 Hr
1,000 mg PO BID@0800,1700
brimonidine-timolol [Combigan] 0.2-0.5 % Drops
1 drp BOTH EYES BID
cholecalciferol (vitamin D3) [Vitamin D3] 25 mcg (1,000 unit) Tablet,Chewable
50 mcg PO NOON
Lumigan 0.01 % Drops
1 drp BOTH EYES HS
Prostate Health 160-100-100 mg-unit-mcg Tablet
1 tab PO QPM
cyanocobalamin (vitamin B-12) 1,000 mcg Lozenge
1,000 mcg SUBLINGUAL NOON
Rhopressa 0.02 % Drops
1 drp BOTH EYES HS
Centrum Chewables 8 mg-400 mcg- 10 mcg Tablet,Chewable
1 tab PO NOON
ascorbic acid (vitamin C) [Vitamin C] 500 mg Tablet,Chewable
500 mg PO DAILY
calcium carbonate [Calcium 500] 500 mg calcium (1,250 mg) Tablet,Chewable
500 mg PO DAILY
Discharge Orders:
Discharge Patient (As Directed); Ordered 03/27/24
Ordered By: Jason Meneses
Discharge Date and Time
Discharge Date/Time: 03/27/24 13:59
Print Language: KOSOVAN
--- NOTE | 2024-03-27 10:59 | CM ---
CM reviewed chart and noted dc
Plan for home with [facility] order requested
IMM completed yesterday by prior CM
Update to [facility] via [facility]
Discharge Disposition- home with [facility]- family transport
[2024-03-27 11:54] LABS: Glucose - Point of Care 233 mg/dl (70-99)
[2024-03-27] MEDS: NOVOLOG FLEXPEN-LOW RESISTANCE 2 UNITS SC (11:58)
[2024-03-27] MEDS: THERAGRAN 1 TABLET PO (11:59)
[2024-03-27] MEDS: VITAMIN D3 (cholecalciferol) 50 MCG PO (11:59)
[2024-03-27] MEDS: VITAMIN B-12 1000 MCG PO (12:00)
[2024-03-27 12:40] VITALS: BP 134/80
== END 2024-03-27 13:59 | disposition home health service (06) | DRG 864 ==
LOC: 4 WEST ACU 22:57
PROVIDERS: Emergency Medicine; Student in an Organized Health Care Education/Training Program; ADMITTING PHYSICIAN Hospitalist; ATTENDING PHYSICIAN Hospitalist; EMERGENCY PHYSICIAN Emergency Medicine; FAMILY PHYSICIAN Family Medicine
DX: R50.9 Fever, unspecified (principal); G92.8 Other toxic encephalopathy; E87.20 Acidosis, unspecified; R65.10 Systemic inflammatory response syndrome (SIRS) of non-infectious origin without acute organ dysfunction; I10 Essential (primary) hypertension; M10.9 Gout, unspecified; E78.5 Hyperlipidemia, unspecified; E11.9 Type 2 diabetes mellitus without complications; D69.6 Thrombocytopenia, unspecified; Z66 Do not resuscitate; Z11.52 Encounter for screening for COVID-19
CPT/HCPCS: 71046; 80048; 80053; 81003; 81015; 82962; 83036; 83605; 85025; 87040; 87502; 87811; 93005; 96365; 96366; 96367; 97116; 97162; 97166; 99285

== ENCOUNTER 2025-06-25 02:30 | Inpatient (IN) | payer MEDICARE, OTHER, SELFPAY ==
[2025-06-24 21:32] VITALS: BP 140/84
[2025-06-24 21:33] VITALS: BP 140/84
[2025-06-24 21:38] VITALS: BMI 26.6
[2025-06-24 21:48] LABS: Hematocrit 43.1 % (39.0-52.0); Hemoglobin 15.0 g/dL (13.0-18.0); Mean Corp Hgb Conc. 34.8 g/dL (33.0-37.0); Mean Corpuscular Volume 96.0 fL (80.0-94.0); Nucleated Red Blood Cells % 0 % (-); Platelet Count 172 10^3/uL (130-400); Red Cell Dist. Width 14.6 % (11.5-14.5)
--- NOTE | 2025-06-24 21:48 | ED.GENMED ---
History of Present Illness
General
Chief Complaint: Fever
Source: patient and spouse
Exam Limitations: dementia
Time Seen by Provider: 06/24/25 21:38
History of Present Illness
History of Present Illness:
85-year-old male presents to the emergency room for evaluation of fever. Patient has a history of dementia and when he gets a temperature he becomes quite confused and disoriented. His noted that he developed a cough yesterday. This evening
he began acting confused and she took his temperature. His temperature was 101. Patient is tolerating oral intake. No nausea vomiting or diarrhea. No history of prostate issues or urinary tract infections. Patient's also developed a cough
over the past 24 hours. She did administer 975 mg of Tylenol prior to leaving the house.
Past History
Past History
ED Past Medical History: Other (Dementia)
ED Past Surgical History: None
Social History
Tobacco: Non-smoker
Alcohol: None
Drug: None
Personal:
Living: with family
Phy Exam
Physical Exam
Physical Exam:
General: Awake, Alert, Oriented X2. No acute distress.
Vitals: unremarkable
Head: Atraumatic
Eyes: Pupils equal, EOMI
Throat: Airway intact, no exudates
Neck: Trachea midline
Lungs: Rhonchi noted left lower lung field
Heart: Regular rate, no murmurs
Abd: Soft, Nontender, No pulsatile mass
Neuro: Nonfocal
Skin: Warm, dry, no rash
Extremities: pulses equal b/l, no edema
Sepsis
Sepsis Screening
Sepsis Assessment: Sepsis
Sepsis Screening: Lactate >2mmol/L
Sepsis Screen
Sepsis Screen: Sepsis
Date: 06/25/25
Time: 02:19
Course
Orders/Labs/Results
Orders:
Orders
06/24/25 21:36
COVID-19 Antigen Urgent
Source: Nasal Swab
Complete Blood Count/With Diff Urgent
Comprehensive Metabolic Panel Urgent
Influenza A+B Rapid Molecular Urgent
AHMET Source: Nasal Swab
Specimen Description:
06/24/25 21:47
0.9% Sodium Chloride 1000 ml [Nss] 1,000 ml IV BOLUS
06/24/25 21:48
Urinalysis Reflex To Culture Urgent
Date Specimen was Collected: 06/24/25
Time Specimen was Collected: 22:47
CR Chest - 2 Views Urgent
Comment:
Reason For Exam: fever, cough
06/24/25 21:56
Lactic Acid Q4H
Comment: CANCEL 2nd LACTIC ACID IF 1st LACTIC ACID IS LESS THAN 2
Blood Culture Urgent
AHMET Source: Blood/Venous
Specimen Description:
06/24/25 22:05
Blood Culture Urgent
AHMET Source: Blood/Venous
Specimen Description:
06/24/25 22:49
Lidocaine 2% [Lidocaine Uro-Jet 2%] 1 syringe .ROUTE .STK-MED ONE
06/24/25 22:50
Lidocaine 2% [Lidocaine Uro-Jet 2%] 1 syringe TOPICAL NOW STA
06/25/25 00:33
Urine Microscopic Reflex Cult Urgent
Urine Culture Urgent
AHMET Source: U
Specimen Description:
Date Specimen was Collected: 06/24/25
Time Specimen was Collected: 22:47
06/25/25 01:48
CefTRIAXone [Rocephin] 2,000 mg IV NOW STA
Doxycycline [Vibramycin] 100 mg PO NOW STA
06/25/25 02:00
Sterile Water [Sterile Water For Injection] 20 ml .ROUTE .STK-MED
06/25/25 02:10
Lactic Acid Q4H
Comment: CANCEL 2nd LACTIC ACID IF 1st LACTIC ACID IS LESS THAN 2
Abnormal Lab Results
06/24/25 06/24/25 06/25/25
21:36 21:56 00:33
RBC 4.49 L 10^6/uL
(4.70-6.10)
MCV 96.0 H fL
(80.0-94.0)
MCH 33.4 H pg
(27.0-31.0)
RDW 14.6 H %
(11.5-14.5)
MPV 10.6 H fL
(7.4-10.4)
Abs Immat Gran (auto) 0.1 H 10^3/uL
(0-0.05)
Absolute Neuts (auto) 7.5 H 10^3/uL
(1.4-6.5)
Immature Gran % 0.6 H %
(0-0.5)
Lymphocytes % 18.5 L %
(20.5-51.1)
BUN 21 H mg/dl
(9-20)
Glucose 169 H mg/dl
(70-99)
Lactic Acid 3.4 H mmol/L
(0.7-2.0)
Ur Occult Blood Reflex 4+ A
(Negative)
Leukocyte Esterase Rfl 1+ A
(Negative)
Urine RBC >100 A /HPF
(0-2)
Urine Bacteria (Reflex) Many A
(Negative)
Urine Glucose 1+ A
(Negative)
Urine Albumin (Reflex) 2+ A
(Neg - Trace)
06/24/25 21:36
06/24/25 21:36
Vital Signs
Initial and Last Documented VS:
Initial Vital Signs
Temp Pulse Resp BP Pulse Ox
98.6 F 115 20 140/84 94
06/24/25 21:32 06/24/25 21:32 06/24/25 21:32 06/24/25 21:32 06/24/25 21:32
Last Documented Vital Signs
Temp Pulse Resp BP Pulse Ox
98.6 F 105 26 139/76 95
06/24/25 21:32 06/25/25 01:45 06/25/25 01:45 06/25/25 01:00 06/25/25 01:45
MDM/Problems Addressed
Differential Diagnosis Includes:
Pneumonia, urinary tract infection, COVID, influenza, other viral illness
MDM/Problems Addressed:
Patient brought to the emergency room for fever and confusion. states he significantly more confused than his baseline though he does have dementia. He is also too weak to get around. Chest x-ray shows no obvious pneumonia. COVID and flu
are negative. White count is not significantly elevated. His lactate was elevated 3. However he has not been hypotensive. We attempted to obtain a straight cath urinalysis. Catheter could not be placed due to what seems to be prostatic
hypertrophy. He was ultimately able to void spontaneously. Repeat postvoid residual shows around 200 and 250. No emergent need for Pittman catheter at this time. Urine is a bit blood-tinged after straight cath but no clots. I discussed the fact
that we are not finding any significant abnormality with his . However she feels he is unable to be discharged given his confusion and weakness. Will ask the hospitalist to hospitalize the patient for supportive care. IV antibiotics
administered for presumed pneumonia.
*Radiology
Radiology exam reviewed: preliminary read by ED provider (No infiltrate noted on my review)
*Pulse Oximetry
SaO2: 93
Oxygen Mode of Delivery: Room air
Patient hypoxic: no
*Critical Care Note
Total Time (30-74mins, 75-104mins- exclusive of procedures): Not Applicable
ED Attending Note
-
Portions of this chart may have been created with voice recognition software.� Occasional wrong word or��sound alike� substitutions may have occurred due to the inherent limitations of voice recognition software.
Discharge Plan
Departure
Patient Disposition: Admit
Date of Disposition: 06/25/25
Time of Disposition: 02:19
Admit to: Med/Surg
Presentation/result/management discussed w/ accepting MD/DO: Hospitalist
Condition: Fair
Discharge Problem:
Fever, Altered mental status
Prescriptions:
No Action
atorvastatin [Lipitor] 10 mg Tablet
10 mg PO QPM
indapamide 2.5 mg Tablet
2.5 mg PO DAILY
glipizide 10 mg Tablet Extended Release 24hr
20 mg PO DAILY
amlodipine [Norvasc] 5 mg Tablet
5 mg PO DAILY
gabapentin 800 mg Tablet
400 mg PO BID
allopurinol 300 mg Tablet
300 mg PO DAILY
lisinopril 40 mg Tablet
40 mg PO DAILY
metformin 500 mg Tablet Extended Release 24 Hr
1,000 mg PO BID@0800,1700
brimonidine-timolol [Combigan] 0.2-0.5 % Drops
1 drp BOTH EYES BID
cholecalciferol (vitamin D3) [Vitamin D3] 25 mcg (1,000 unit) Tablet,Chewable
50 mcg PO NOON
Lumigan 0.01 % Drops
1 drp BOTH EYES HS
Prostate Health 160-100-100 mg-unit-mcg Tablet
1 tab PO BID
cyanocobalamin (vitamin B-12) 1,000 mcg Lozenge
1,000 mcg SUBLINGUAL NOON
Rhopressa 0.02 % Drops
1 drp BOTH EYES HS
Centrum Chewables 8 mg-400 mcg- 10 mcg Tablet,Chewable
1 tab PO NOON
ascorbic acid (vitamin C) [Vitamin C] 500 mg Tablet,Chewable
500 mg PO DAILY
calcium carbonate [Calcium 500] 500 mg calcium (1,250 mg) Tablet,Chewable
500 mg PO DAILY
Referrals:
Sohail Ma MD [Family Provider, Family Practice]
Interventions
Interventions:
*General Assessment Last Done: 06/24/25 21:32
*Neglect/Abuse Screening Last Done: 06/24/25 21:45
*ED COVID-19 Vaccine History Last Done: 06/24/25 21:32
*ED Influenza Vaccine History Last Done: 06/24/25 21:32
[facility] Fall Risk Assessment Tool Last Done: 06/24/25 21:32
*Risk Screen - Suicide (C-SSRS) Last Done: 06/24/25 21:45
ED- Neurological Assessment Last Done: 06/24/25 21:38
ED-Skin Assessment Last Done: 06/24/25 21:38
Discharge Date and Time
Print Language: KHMER
[2025-06-24 22:00] VITALS: BP 131/77
[2025-06-24 22:02] LABS: COVID-19 Antigen Negative (Negative)
[2025-06-24] MEDS: NSS 1000 IV (22:04)
[2025-06-24 22:06] LABS: ALT (SGPT) 37 U/L (0-50); AST (SGOT) 33 U/L (17-59); Albumin 4.4 g/dl (3.5-5.0); Alkaline Phosphatase 93 U/L (38-126); Blood Urea Nitrogen 21 mg/dl (9-20); Calcium 9.5 mg/dl (8.4-10.2); Carbon Dioxide 22 mmol/L (22-30); Chloride 101 mmol/L (98-107); Estimated Creatinine Clearance 52 ml/min; Glucose 169 mg/dl (70-99); Potassium 3.7 mmol/L (3.5-5.1); Sodium 137 mmol/L (135-145); Total Protein 6.9 g/dl (6.3-8.2); eGFR > 60.00
[2025-06-24 22:41] VITALS: BP 139/74
[2025-06-24] MEDS: LIDOCAINE URO-JET 2% 1 SYRINGE TOPICAL (22:51)
[2025-06-24 23:00] VITALS: BP 144/84
[2025-06-25] VITALS (11 sets, daily range): BP systolic 129–164; BP diastolic 68–85; BMI 25.5
[2025-06-25 00:51] LABS: Urine Character Slightly Cloudy (Clear)
[2025-06-25 01:28] LABS: Urine Red Blood Cell >100 /HPF (0-2); Urine Squamous Cell >30 /LPF (Few)
[2025-06-25] MEDS: VIBRAMYCIN 100 MG PO (02:05)
[2025-06-25] MEDS: ROCEPHIN 2000 MG IV (02:07)
--- NOTE | 2025-06-25 02:24 | HPS.HSE ---
Family Physician
-
Family Physician: Sohail Ma
Chief Complaint
-
Cough, Confusion
History of Present Illness
Patient is an 85y M with PMH significant for hypertension, DM-II and dementia who presents to ED for evaluation of cough, fever and confusion. History obtained from patient and his at the bedside. reports that they both developed
cough / 'cold symptoms' within the past 1-2 days. Patient has had hacking, non-productive cough. He seemed much more confused this evening - which has happened multiple times in the past with acute illnesses. checked his temperature and
noted it to be 101 at home. She administered Tylenol and called 911. Patient was brought to the ED for evaluation.
On arrival here he was afebrile. He is flushed appearing and has cough noted during his ED stay.
Medical History
Past Medical History
Past Medical History: Reports Other
Additional Past Medical History:
Hypertension
DM-II with Neuropathy
Senile Dementia
Gout
Glaucoma
Melanoma
Past Surgical History: Reports Other
Additional Past Surgical History:
Left Knee Arthroscopy
Melanoma Resection x 2
Eye Surgery
Social History
Tobacco: Non-smoker
Alcohol: None
Drug: None
Personal:
Living: With Family
Family History
Family History: Not pertinent
Allergies / Home Medications
Allergies reflects when Allergies were last updated in [facility].
Home Medications with original date entered in [facility]
Allergy/Medication List:
Allergies
Allergy/AdvReac Type Severity Reaction Status Date / Time
Sulfa (Sulfonamide Allergy Unknown Unknown Verified 03/24/24 17:55
Antibiotics)
NSAIDS (Non-Steroidal Allergy [place] Verified 03/24/24 17:55
Anti-Inflamma [place]
Home Medications
allopurinol 300 mg tablet 300 mg PO DAILY Gout 06/25/23
amlodipine 5 mg tablet (Norvasc) 5 mg PO DAILY Blood Pressure 06/25/23
atorvastatin 10 mg tablet (Lipitor) 10 mg PO QPM High Cholesterol 06/25/23
bimatoprost 0.01 % eye drops (Lumigan) 1 drp BOTH EYES HS Eye Condition 06/25/23
brimonidine 0.2 %-timolol 0.5 % eye drops (Combigan) 1 drp BOTH EYES BID Eye Condition 06/25/23
cholecalciferol (vitamin D3) 25 mcg (1,000 unit) chewable tablet (Vitamin D3) 50 mcg PO NOON Supplement 06/25/23
cyanocobalamin (vitamin B-12) 1,000 mcg sublingual lozenge 1,000 mcg sublingual NOON Supplement 06/25/23
gabapentin 800 mg tablet 400 mg PO BID Neurological Condition 06/25/23
glipizide 10 mg tablet, extended release 24 hr 20 mg PO DAILY Diabetes 06/25/23
indapamide 2.5 mg tablet 2.5 mg PO DAILY Fluid Retention/Swelling 06/25/23
lisinopril 40 mg tablet 40 mg PO DAILY Blood Pressure 06/25/23
metformin 500 mg tablet,extended release 24hr (osmotic) 1,000 mg PO BID@0800,1700 Diabetes 06/25/23
zzyzdxrs-imtjbcai-cfrc 8 mg-folic ac 400 mcg-vit K 10 mcg chew tablet (Centrum Chewables) 1 tab PO NOON Supplement 06/25/23
netarsudil 0.02 % eye drops (Rhopressa) 1 drp BOTH EYES HS Eye Condition 06/25/23
saw palm 160 mg-vit E 100 unit-selen 100 mvr-mbdp-mbxxar-pygeum tablet (Prostate Health) 1 tab PO BID Supplement 06/25/23
ascorbic acid (vitamin C) 500 mg chewable tablet (Vitamin C) 500 mg PO DAILY Supplement 03/24/24
calcium carbonate (Calcium 500) 500 mg PO DAILY Supplement 03/24/24
Review of Systems
-
History Source: Patient and Family
A 12 point ROS was completed and negative except as noted: Yes
Constitutional: Reports Fever, Fatigue and Chills
EENT: Reports Runny Nose; Denies Sore Throat
Respiratory: Reports Cough; Denies Trouble Breathing
Cardiac: Denies Chest Pain or Palpitations
Abdomen/GI: Denies Abdominal Pain, Nausea, Vomiting or Diarrhea
: Denies Dysuria, Frequency or Incontinence
Musculoskeletal: Denies Joint Pain or Edema
Neurological: Denies Dizzy or Headache
Psych: Reports Dementia
Physical Exam
Vital Signs
Vital Signs
Temp Pulse Resp BP Pulse Ox
98.6 F 105 26 139/76 95
06/24/25 21:32 06/25/25 01:45 06/25/25 01:45 06/25/25 01:00 06/25/25 01:45
Physical Exam
General: Other (85y M with flushed facies, cough during exam. )
HEENT: Other (Dry MM. Neck supple.)
Respiratory: Other (Few scattered rhonchi. No wheezing.)
Cardiac: S1/S2 and Tachycardia; No Murmur
GI: Soft, Non Tender, Non Distended and Normal Bowel Sounds
Musculoskeletal: No Clubbing, No Cyanosis and No Edema
Neuro: Awake, Alert and Nonfocal/grossly intact
Laboratory Results
-
06/24/25 21:36
06/24/25 21:36
Laboratory Results
Lactic Acid 3.4 mmol/L (0.7-2.0) H 06/24/25 21:56
Total Bilirubin 0.6 mg/dl (0.2-1.3) 06/24/25 21:36
AST 33 U/L (17-59) 06/24/25 21:36
ALT 37 U/L (0-50) 06/24/25 21:36
Alkaline Phosphatase 93 U/L (38-126) 06/24/25 21:36
Impression/Plan
-
A/P: Patient is an 85y M with PMH significant for hypertension, DM-II and dementia who presents to ED for evaluation of fever, cough and confusion.
Viral Syndrome
Acute TME secondary to the above
Lactic Acidosis
Sepsis secondary to the above
- Admit for further evaluation and treatment.
- Patient presents with cough / cold symptoms, fever (stated) and evidence of organ dysfunction in the form of acute confusion and elevated lactate.
- ED work-up thus far is unremarkable. No focal infiltrate on CXR. COVID / Flu negative. UA = blood / squamous cells.
- Symptoms clearly indicate respiratory infection - likely viral process.
- Continue empiric abx for now pending blood culture data, etc. Low threshold to discontinue if patient remains afebrile.
- Follow fever curve and monitor for any new / worsening symptoms.
- Follow for return to baseline mental status.
- Continue supportive care including IVFs, antipyretics, etc.
Benign Hypertension
- Stable. Continue home regimen with holding parameters.
DM-I with Peripheral NeuropathyI
- Stable. Hold oral medications acutely.
- Follow glucose and cover with SSI as needed.
- Update A1C.
- Continue gabapentin.
Glaucoma
- Continue usual eye drop regimen.
Senile Dementia
- Acute confusion / delirium noted by this evening - likely due to acute infection as noted above.
- Follow for return to baseline.
DVT Prophylaxis: Lovenox
Code Status: DNR
[2025-06-25] MEDS: NSS 1000 IV (02:44)
[2025-06-25 04:27] LABS: Glucose - Point of Care 148 mg/dl (70-99)
[2025-06-25] MEDS: ZOSYN 50 IV ×4 (05:16→21:07)
[2025-06-25] MEDS: ZOFRAN 4 MG IV (05:18)
[2025-06-25 05:41] LABS: Hematocrit 41.9 % (39.0-52.0); Hemoglobin 14.5 g/dL (13.0-18.0); Mean Corp Hgb Conc. 34.6 g/dL (33.0-37.0); Mean Corpuscular Volume 96.5 fL (80.0-94.0); Platelet Count 164 10^3/uL (130-400); Red Cell Dist. Width 14.5 % (11.5-14.5)
[2025-06-25 06:02] LABS: Blood Urea Nitrogen 18 mg/dl (9-20); Calcium 8.8 mg/dl (8.4-10.2); Carbon Dioxide 26 mmol/L (22-30); Chloride 102 mmol/L (98-107); Estimated Creatinine Clearance 59 ml/min; Glucose 194 mg/dl (70-99); Potassium 3.8 mmol/L (3.5-5.1); Sodium 138 mmol/L (135-145); eGFR > 60.00
[2025-06-25] MEDS: LR 1000 IV ×2 (06:43→16:48)
[2025-06-25 07:48] LABS: Glucose - Point of Care 239 mg/dl (70-99)
--- NOTE | 2025-06-25 09:14 | W.PN.HOSP.TC ---
Today's Communication/Plan
-
Await cultures
IV antibiotics
PT consult
Assessment / Plan
Assessment / Plan
Gen-awake, alert, confused, NAD
HEENT-NC, AT, anicteric, clear oral mm
Neck-supple
CV-reg, no M, +S1/S2
Lungs-clear B/L
Abd-soft, NT, ND
Ext-no edema
Musculoskeletal-no cyanosis, clubbing
Skin-warm and dry
Neuro-grossly non-focal
Psych-calm, cooperative
Acute metabolic encephalopathy -suspect due to acute febrile illness in the setting of underlying dementia. Treat supportively.
Sepsis -source possibly pulmonary given presentation with cough. Sepsis characterized by confusion, acute encephalopathy, elevated lactic acid.
Admission two-view chest x-ray without infiltrates.
Blood and urine cultures pending.
Patient very poor historian due to underlying dementia and presentation with acute encephalopathy.
Currently on empiric IV Zosyn, continue for now.
Hemodynamically stable, not in shock.
Essential hypertension -stable. Resume home meds.
DM 2 with hyperglycemia -was on glipizide and metformin prior to admission. Hemoglobin A1c pending.
Glucose 194 this morning.
Currently on low resistance NovoLog corrective scale. Hold oral agents.
Hyperlipidemia -on atorvastatin.
Alzheimer's dementia
Glaucoma
History of melanoma
History of gout
DNR
PT consult
Anticipated Discharge: 24 - 48 hours
Subjective/Interval History
-
Date of Service: June 25, 2025
Patient seen and examined. No complaints. Not oriented to hospital.
Objective Data
-
Labs:
Laboratory Results
06/24/25 06/25/25
21:36 05:26
WBC 10.0 8.9
Hgb 15.0 14.5
Hct 43.1 41.9
Plt Count 172 164
Sodium 137 138
Potassium 3.7 3.8
Chloride 101 102
Carbon Dioxide 22 26
BUN 21 H 18
Creatinine 1.1 1.0
Glucose 169 H 194 H
Calcium 9.5 8.8
Total Bilirubin 0.6
AST 33
ALT 37
Alkaline Phosphatase 93
Vital Signs:
Vital Signs
Temp Pulse Resp BP Pulse Ox
100.3 F 92 16 150/72 92
06/25/25 07:49 06/25/25 07:49 06/25/25 07:49 06/25/25 07:49 06/25/25 07:49
Review of Systems
-
Unable to obtain full review of systems at this time due to: Dementia
History Source: Patient
All other systems: Reviewed and negative
[2025-06-25] MEDS: ALPHAGAN 0.2% EYE DROPS 1 DROP BOTH EYES (09:58)
[2025-06-25] MEDS: ZESTRIL 40 MG PO (09:59)
[2025-06-25] MEDS: MUCINEX 600 MG PO ×2 (09:59→20:39)
[2025-06-25] MEDS: NORVASC 5 MG PO (09:59)
[2025-06-25] MEDS: LOW STRENGTH ASPIRIN 81 MG PO (10:00)
[2025-06-25] MEDS: NEURONTIN 400 MG PO ×2 (10:01→20:39)
[2025-06-25] MEDS: VITAMIN C 500 MG PO (10:01)
[2025-06-25] MEDS: ZYLOPRIM 300 MG PO (10:01)
[2025-06-25] MEDS: TYLENOL 650 MG PO ×2 (10:04→22:49)
[2025-06-25] MEDS: NOVOLOG FLEXPEN-LOW RESISTANCE 2 UNITS SC (10:20)
[2025-06-25 10:23] LABS: Glycohemoglobin (HgbA1c) 7.3 % (4.0-5.9)
[2025-06-25 12:14] LABS: Glucose - Point of Care 293 mg/dl (70-99)
[2025-06-25] MEDS: NOVOLOG FLEXPEN-LOW RESISTANCE 3 UNITS SC (13:35)
[2025-06-25] MEDS: LIPITOR 10 MG PO (16:48)
[2025-06-25] MEDS: LOVENOX 40 MG SC (16:48)
[2025-06-25] MEDS: NON-FORMULARY ITEM 1 UNIT RIGHT EYE ×2 (16:49)
[2025-06-25 17:21] LABS: Glucose - Point of Care 190 mg/dl (70-99)
[2025-06-25] MEDS: NOVOLOG FLEXPEN-LOW RESISTANCE 1 UNITS SC (17:23)
[2025-06-25] MEDS: NON-FORMULARY ITEM 1 DROP RIGHT EYE (21:08)
[2025-06-25 22:10] LABS: Glucose - Point of Care 138 mg/dl (70-99)
[2025-06-26] MEDS: LR IV (01:46)
[2025-06-26] MEDS: ZOSYN 50 IV ×4 (03:29→21:00)
[2025-06-26 06:00] VITALS: BMI 25.6
[2025-06-26 08:06] VITALS: BP 147/77
[2025-06-26] MEDS: ZYLOPRIM 300 MG PO (08:25)
[2025-06-26] MEDS: LOW STRENGTH ASPIRIN 81 MG PO (08:25)
[2025-06-26] MEDS: NEURONTIN 400 MG PO ×2 (08:25→20:43)
[2025-06-26] MEDS: MUCINEX 600 MG PO ×2 (08:25→20:43)
[2025-06-26] MEDS: VITAMIN C 500 MG PO (08:25)
[2025-06-26] MEDS: NON-FORMULARY ITEM 1 UNIT RIGHT EYE ×3 (08:26→16:02)
[2025-06-26] MEDS: ZESTRIL 40 MG PO (08:27)
[2025-06-26] MEDS: NORVASC 5 MG PO (08:27)
[2025-06-26 08:31] LABS: Glucose - Point of Care 113 mg/dl (70-99)
[2025-06-26] MEDS: NOVOLOG FLEXPEN-LOW RESISTANCE SC ×2 (08:34→17:33)
[2025-06-26] MEDS: LR 1000 IV (09:48)
--- NOTE | 2025-06-26 11:18 | W.PN.HOSP.TC ---
Today's Communication/Plan
-
Continue PT
RSV
Await cultures
Assessment / Plan
Assessment / Plan
Gen-awake, alert, confused, NAD
HEENT-NC, AT, anicteric, clear oral mm
Neck-supple
CV-reg, no M, +S1/S2
Lungs-clear B/L
Abd-soft, NT, ND
Ext-no edema
Musculoskeletal-no cyanosis, clubbing
Skin-warm and dry
Neuro-grossly non-focal
Psych-calm, cooperative
Acute metabolic encephalopathy -suspect due to acute febrile illness in the setting of underlying dementia. Treat supportively.
Sepsis due to acute bronchitis -source possibly pulmonary given presentation with cough. Sepsis characterized by confusion, acute encephalopathy, elevated lactic acid. Fever noted last night, 101.8 �F.
COVID and influenza negative. Check for RSV.
Admission two-view chest x-ray without infiltrates.
Blood cultures negative. Urine cultures negative.
Patient very poor historian due to underlying dementia and presentation with acute encephalopathy.
Day 2 of IV Zosyn. Discontinue if cultures remain negative.
Hemodynamically stable, not in shock.
Essential hypertension -stable.
DM 2 with hyperglycemia -was on glipizide and metformin prior to admission. Hemoglobin A1c pending.
Glucose 113 this morning.
Currently on low resistance NovoLog corrective scale. Hold oral agents.
Hyperlipidemia -on atorvastatin.
Alzheimer's dementia
Glaucoma
History of melanoma
History of gout
DNR
PT consult -SNF recommended.
Updated on the phone. All questions answered.
Anticipated Discharge: Within 24 hours
Subjective/Interval History
-
Date of Service: June 26, 2025
Patient seen and examined. No complaints.
Objective Data
-
Vital Signs:
Vital Signs
Temp Pulse Resp BP Pulse Ox
98.2 F 95 18 147/77 92
06/26/25 10:10 06/26/25 08:27 06/26/25 08:06 06/26/25 08:27 06/26/25 08:06
I&O
06/25/25 06/26/25 06/27/25
06:59 06:59 06:59
Intake Total 1675 / 1675
Output Total 1750 / 1750
Balance -75 / -75
Review of Systems
-
History Source: Patient
All other systems: Reviewed and negative
[2025-06-26 11:22] VITALS: BP 136/71
[2025-06-26 12:10] LABS: Glucose - Point of Care 165 mg/dl (70-99)
[2025-06-26] MEDS: NOVOLOG FLEXPEN-LOW RESISTANCE 1 UNITS SC (13:07)
[2025-06-26 15:34] VITALS: BP 143/76
[2025-06-26 17:08] LABS: Glucose - Point of Care 141 mg/dl (70-99)
[2025-06-26] MEDS: LOVENOX 40 MG SC (17:44)
[2025-06-26] MEDS: LIPITOR 10 MG PO (17:44)
[2025-06-26 19:18] VITALS: BP 134/85
[2025-06-26] MEDS: TYLENOL 650 MG PO (20:43)
[2025-06-26] MEDS: NON-FORMULARY ITEM 1 DROP RIGHT EYE (20:44)
[2025-06-26 21:39] LABS: Glucose - Point of Care 120 mg/dl (70-99)
[2025-06-26 23:33] VITALS: BP 138/77
[2025-06-27] VITALS (7 sets, daily range): BP systolic 114–145; BP diastolic 68–83; PULSE 96; BMI 25.3
[2025-06-27] MEDS: ZOSYN 50 IV ×3 (03:04→15:22)
[2025-06-27 07:45] LABS: Glucose - Point of Care 125 mg/dl (70-99)
[2025-06-27] MEDS: NOVOLOG FLEXPEN-LOW RESISTANCE SC (07:54)
--- NOTE | 2025-06-27 08:12 | W.PN.HOSP.TC ---
Today's Communication/Plan
-
Recurrent fever - change antibiotics -- appreciate ID. See plan
Continue to monitor on telemetry
Assessment / Plan
Assessment / Plan
Physical Exam
Gen-awake, alert, confused, NAD
HEENT-NC, AT, anicteric, clear oral mm
Neck-supple
CV-reg, no M, +S1/S2
Lungs-clear B/L
Abd-soft, NT, ND
Ext-no edema
Musculoskeletal-no cyanosis, clubbing
Skin-warm and dry
Neuro-grossly non-focal
Psych-calm, cooperative
Assessment/Plan
Acute metabolic encephalopathy -suspect due to acute febrile illness in the setting of underlying dementia. Treat supportively.
Sepsis due to acute bronchitis -source possibly pulmonary given presentation with cough. Sepsis characterized by confusion, acute encephalopathy, elevated lactic acid. Fever noted last night, 101.8 �F.
COVID and influenza negative. RSV negative
Admission two-view chest x-ray without infiltrates.
Blood cultures negative. Urine cultures negative.
Patient very poor historian due to underlying dementia and presentation with acute encephalopathy.
Recurrent fever so change Zosyn to Doxycycline to cover atypical pneumonia, check urine legionella Ag, recheck COVID, Flu, CXR. Appreciate ID.
Hemodynamically stable, not in shock.
Essential hypertension -stable.
DM 2 with hyperglycemia -was on glipizide and metformin prior to admission. Hemoglobin A1c 7.3%
Currently on low resistance NovoLog corrective scale. Hold oral agents.
Hyperlipidemia -on atorvastatin.
Alzheimer's dementia
Glaucoma
History of melanoma
History of gout
DNR
PT consult -SNF recommended.
Anticipated Discharge: 24 - 48 hours
Subjective/Interval History
-
Date of Service: June 27, 2025
Patient was seen and examined. He was feeling okay, denied any new symptoms or complaints. Fever overnight.
Objective Data
-
Vital Signs:
Vital Signs
Temp Pulse Resp BP Pulse Ox
98.4 F 95 17 144/82 93
06/27/25 04:13 06/27/25 03:08 06/27/25 03:08 06/27/25 03:08 06/27/25 03:08
I&O
06/26/25 06/27/25 06/28/25
06:59 06:59 06:59
Intake Total 1675 / 1675 480 / 480
Output Total 1750 / 1750 1900 / 1900
Balance -75 / -75 -1420 / -1420
[2025-06-27] MEDS: ZESTRIL 40 MG PO (09:02)
[2025-06-27] MEDS: ZYLOPRIM 300 MG PO (09:02)
[2025-06-27] MEDS: NEURONTIN 400 MG PO ×2 (09:02→20:51)
[2025-06-27] MEDS: MUCINEX 600 MG PO ×2 (09:03→20:51)
[2025-06-27] MEDS: NORVASC 5 MG PO (09:03)
[2025-06-27] MEDS: VITAMIN C 500 MG PO (09:03)
[2025-06-27] MEDS: LOW STRENGTH ASPIRIN 81 MG PO (09:03)
[2025-06-27] MEDS: NON-FORMULARY ITEM 1 UNIT RIGHT EYE ×3 (09:04→17:06)
--- NOTE | 2025-06-27 11:29 | CM ---
Addendum entered by Lelo Mckeon 06/27/25 15:01:
[facility] has clinically accepted pt tomorrow
Discussion with attending- ADC tomorrow
Original Note:
CM spoke with spouse on phone
[place] 2 [place]
Pt has dementia but forgetful without behaviors, spouse provides 24/ supervision
Pt is independent without AD at baseline with ambulation
Spouse provides setup and supervision for personal care and eating due to poor vision
PCP- [facility]
Rx- [facility]
SNF recs by PT, spouse in agreement
PASRR completed and referrals sent to [facility], [facility], [facility], and [facility] is 1st choice
Pt will have qualifying stay tomorrow 06/28
Discharge Disposition- SNF, referrals pending
[2025-06-27 11:52] LABS: Glucose - Point of Care 153 mg/dl (70-99)
[2025-06-27] MEDS: NOVOLOG FLEXPEN-LOW RESISTANCE 1 UNITS SC (12:23)
[2025-06-27 14:21] LABS: Hematocrit 39.6 % (39.0-52.0); Hemoglobin 13.6 g/dL (13.0-18.0); Mean Corp Hgb Conc. 34.3 g/dL (33.0-37.0); Mean Corpuscular Volume 94.3 fL (80.0-94.0); Nucleated Red Blood Cells % 0 % (-); Platelet Count 143 10^3/uL (130-400); Red Cell Dist. Width 14.6 % (11.5-14.5)
[2025-06-27 14:42] LABS: Blood Urea Nitrogen 16 mg/dl (9-20); Calcium 8.6 mg/dl (8.4-10.2); Carbon Dioxide 24 mmol/L (22-30); Chloride 99 mmol/L (98-107); Estimated Creatinine Clearance 59 ml/min; Glucose 243 mg/dl (70-99); Potassium 3.8 mmol/L (3.5-5.1); Sodium 132 mmol/L (135-145); eGFR > 60.00
--- NOTE | 2025-06-27 15:29 | CON.ID ---
Addendum entered and electronically signed by Susan Harrington MD 06/27/25 17:28:
Repeat test +Influenza A.
DC doxycycline.
Start oseltamivir.
D/W Dr. Somers
Original Note:
Consultation
-
Date/Time Consultation Requested: June 27, 2025 1315
Date/Time Consultation Performed: June 27, 2025 1530
Requesting Provider: Dr. Robin Somers
Performing Provider: Dr. Susan Harrington
Reason for Consultation: Bronchitis with persistent fever
Chief Complaint / Past History
Chief Complaint
Cough, change in mental status
History of Present Illness
History obtained from the patient as well as review of medical records. He is an 85-year-old male with a history of dementia, diabetes mellitus, who presented to the ED on June 24 due to acute onset of dry cough. He and his developed
runny nose and dry cough June 24. His took the patient's temperature which was 101 and she noted the patient was somewhat confused and therefore he was sent to the ER. In ED initially afebrile. Normal white count. COVID-negative.
Influenza negative. He received ceftriaxone and doxycycline then changed to Zosyn. June 25 he started spiking fevers one 101.8. RSV negative. Patient reports dry cough is stable. No shortness of breath. Positive fevers. No chills.
Appetite decreased. No sore throat. No headaches. No urine symptoms. No nausea, vomiting, abdominal pain, or diarrhea. He states he is up-to-date with his influenza vaccine. He is not sure about COVID-vaccine. No ill-contacts. There was small
gathering during [place] but no one was sick.
Past History
Additional Past Medical History:
Diabetes mellitus type 2
Peripheral neuropathy
Dementia
Hypertension
Gout
Glaucoma surgery
Melanoma resection x 2
Left knee arthroscopic surgery
Allergy History:
Sulfa (Sulfonamide Antibiotics) Allergy (Unknown, Verified 03/24/24 17:55)
Unknown
NSAIDS (Non-Steroidal Anti-Inflamma Allergy (Verified 03/24/24 17:55)
Johnson Bernardino Sydrome
Medications Reviewed: Yes
Current Antibiotics:
s/p ceftriaxone/doxy x 1
Zosyn d4
Social History
Tobacco: Non-Smoker
Alcohol: None
Drug: None
Personal:
Family History
Family History: Not Pertinent
Review of Systems
Review of Systems
General: Fever and Change in Appetite
HEENT: Other (Runny nose); Negative Headache or Pharyngitis
Cardiovascular: Negative Chest Pain or Dyspnea
Respiratory: Cough; Negative Dyspnea or Sputum Production
Gasteroenterology: Negative Nausea, Vomiting or Diarrhea
Genital / Urological: Negative Dysuria or Flank Pain
Endocrine: Weakness
All systems: All other systems were reviewed and were negative
Vital Signs
Temp Pulse Resp BP Pulse Ox
98.8 F 89 18 114/68 92
06/27/25 11:05 06/27/25 11:05 06/27/25 11:05 06/27/25 11:05 06/27/25 11:05
Selected Entries
06/26/25
20:42
Temp max 102.2 F H
Physical Exam
Physical Exam
Constitutional: No Acute Distress
Cardiovascular: Regular Rate and S1/S2
Pulmonary: Rales (Bibasilar crackles L>R)
Gastrointestinal: Soft, Non Tender, Non Distended and Normal Bowel Sounds
Genito-Urinary: Negative CVA Tenderness
Extremities: Negative Edema
Neurological: Awake and Alert
Lab / Diagnostic Study Results
06/27/25 14:07
06/27/25 14:07
Abs Immat Gran (auto) 0.0 10^3/uL (0-0.05) 06/27/25 14:07
Absolute Neuts (auto) 4.0 10^3/uL (1.4-6.5) 06/27/25 14:07
Absolute Lymphs (auto) 1.9 10^3/uL (1.2-3.4) 06/27/25 14:07
Absolute Monos (auto) 0.4 10^3/uL (0.1-0.6) 06/27/25 14:07
Absolute Basos (auto) 0.0 10^3/uL (0-0.2) 06/27/25 14:07
Immature Gran % 0.6 % (0-0.5) H 06/27/25 14:07
Neutrophils % 62.4 % (42.2-75.2) 06/27/25 14:07
Lymphocytes % 30.1 % (20.5-51.1) 06/27/25 14:07
Monocytes % 5.6 % (1.7-9.3) 06/27/25 14:07
Eosinophils % 0.8 % (0-6) 06/27/25 14:07
Basophils % 0.5 % (0-2) 06/27/25 14:07
Lactic Acid 2.1 mmol/L (0.7-2.0) H 06/25/25 21:44
Ur Squamous Epith Cells >30 /LPF (Few) 06/25/25 00:33
Microbiology Results
Micro:
06/24/25 22:05 Blood Culture - Preliminary
Blood/Venous No Growth in 48 hours- Final report to follow
06/24/25 21:56 Blood Culture - Preliminary
Blood/Venous No Growth in 48 hours- Final report to follow
06/26/25 11:38 Respiratory Syncytial Virus Ag - Final
Nasal Swab Negative for Respiratory Syncytial Virus.
A false negative result may be obtained with a specimen
collected early in the acute phase. If symptoms persist, a
new specimen should be tested.
06/25/25 00:33 Urine Culture - Final
Urine NO GROWTH
06/24/25 21:36 Influenza Types A & B (MANUEL) - Final
Nasal Swab Negative for Influenza A & B, NAAT
Negative results must be combined with clinical observations
and patient history.
Nucleic Acid Amplification test (NAAT)performed on the
[employer] platform.
06/24/25 CXR: Stable appearance of the chest, as described, without superimposed acute cardiopulmonary process.
Assessment / Plan
# Dry cough
#Rhinorrhea
# Fever persists on Zosyn d3
- Blood cx's neg
- Ucx neg
- Admission COVID19, Influenza neg
- RSV neg.
- Admission CXR neg
- Bibase crackles on exam. Ordered 2V CXR
- Check urine legionella ag
- repeat COVID19 and Influenza tests
- DC Zosyn
- Start empiric doxycycline 100mg po bid for possible atypical CAP coverage pending repeat CXR.
- Trend temps.
# Conditions prior to admission:
Diabetes mellitus type 2
Peripheral neuropathy
Dementia
Hypertension
Gout
Glaucoma surgery
Melanoma resection x 2
Left knee arthroscopic surgery
[2025-06-27 16:57] LABS: Glucose - Point of Care 202 mg/dl (70-99)
[2025-06-27] MEDS: LIPITOR 10 MG PO (17:05)
[2025-06-27] MEDS: LOVENOX 40 MG SC (17:05)
[2025-06-27 17:06] LABS: COVID-19 Antigen Negative (Negative)
[2025-06-27] MEDS: NOVOLOG FLEXPEN-LOW RESISTANCE 2 UNITS SC (17:06)
[2025-06-27] MEDS: VIBRAMYCIN 100 MG PO (17:08)
[2025-06-27] MEDS: TAMIFLU 75 MG PO (17:25)
--- NOTE | 2025-06-27 17:38 | PTCARENOTE ---
Flu/COVID swabs ordered, pt swabbed. Pt flu positive, MD made aware. Precautions changed, pt sent down with PCT for CXR.
[2025-06-27] MEDS: NON-FORMULARY ITEM 1 DROP RIGHT EYE (20:51)
[2025-06-27 21:31] LABS: Glucose - Point of Care 168 mg/dl (70-99)
[2025-06-28 03:33] VITALS: BP 146/87
[2025-06-28 05:50] VITALS: BMI 24.9
[2025-06-28 06:00] VITALS: BMI 24.9
[2025-06-28 07:30] VITALS: BP 143/87
[2025-06-28 09:01] LABS: Glucose - Point of Care 151 mg/dl (70-99)
[2025-06-28] MEDS: NORVASC 5 MG PO (09:29)
[2025-06-28] MEDS: ZYLOPRIM 300 MG PO (09:29)
[2025-06-28] MEDS: MUCINEX 600 MG PO (09:29)
[2025-06-28] MEDS: LOW STRENGTH ASPIRIN 81 MG PO (09:30)
[2025-06-28] MEDS: NEURONTIN 400 MG PO (09:30)
[2025-06-28] MEDS: ZESTRIL 40 MG PO (09:30)
[2025-06-28] MEDS: VITAMIN C 500 MG PO (09:31)
[2025-06-28] MEDS: NON-FORMULARY ITEM 1 UNIT RIGHT EYE (09:32)
[2025-06-28] MEDS: NOVOLOG FLEXPEN-LOW RESISTANCE 1 UNITS SC (09:33)
[2025-06-28] MEDS: TAMIFLU 75 MG PO (09:56)
[2025-06-28 09:58] LABS: Hematocrit 41.2 % (39.0-52.0); Hemoglobin 14.4 g/dL (13.0-18.0); Mean Corp Hgb Conc. 35.0 g/dL (33.0-37.0); Mean Corpuscular Volume 95.8 fL (80.0-94.0); Platelet Count 143 10^3/uL (130-400); Red Cell Dist. Width 14.4 % (11.5-14.5)
[2025-06-28 10:24] LABS: Blood Urea Nitrogen 15 mg/dl (9-20); Calcium 8.7 mg/dl (8.4-10.2); Carbon Dioxide 26 mmol/L (22-30); Chloride 98 mmol/L (98-107); Estimated Creatinine Clearance 59 ml/min; Glucose 201 mg/dl (70-99); Magnesium 1.5 mg/dl (1.6-2.3); Potassium 3.6 mmol/L (3.5-5.1); Sodium 133 mmol/L (135-145); eGFR > 60.00
[2025-06-28 11:12] VITALS: BP 128/76
[2025-06-28 11:56] LABS: Glucose - Point of Care 235 mg/dl (70-99)
--- NOTE | 2025-06-28 11:59 | W.PN.ID1 ---
Date of Service
Date of Service: June 28, 2025
Today's Communication
- Continue oseltamivir 75mg po bid x 5 days.
Assessment / Plan
# Influenza A infection
. Vaccinated status
. Symptom onset 06/24/25
# Fever resolving
- Blood cx's neg
- Ucx neg
- Admission COVID19, Influenza neg.
06/27 Repeat tests: + Influenza A
- RSV neg.
- Admission CXR neg
06/27 Repeat 2V CXR: new small bilateral pleural effusions with atelectasis
- Continue oseltamivir 75mg po bid x 5 days.
- Follow clinically
# Conditions prior to admission:
Diabetes mellitus type 2
Peripheral neuropathy
Dementia
Hypertension
Gout
Glaucoma surgery
Melanoma resection x 2
Left knee arthroscopic surgery
Chief Complaint
-: Fever and Other (cough)
Subjective / Review of Systems
Cough slightly better.
Vital Signs / Physical Exam
Vital Signs
Vital Signs
Temp Pulse Resp BP Pulse Ox
97.0 F 89 16 128/76 96
06/28/25 11:12 06/28/25 11:12 06/28/25 11:12 06/28/25 11:12 06/28/25 11:12
Physical Exam
Constitutional: Comfortable
Cardiovascular: Regular Rate and S1/S2
Pulmonary: Rales (bibase)
Gastrointestinal: Soft, Non Tender, Non Distended and Normal Bowel Sounds
Objective Data
Lab Data
Lab Results
06/28/25 09:34
06/28/25 09:34
Estimated Creat Clear 59 ml/min 06/28/25 09:34
Lactic Acid 2.1 mmol/L (0.7-2.0) H 06/25/25 21:44
Total Bilirubin 0.6 mg/dl (0.2-1.3) 06/24/25 21:36
AST 33 U/L (17-59) 06/24/25 21:36
ALT 37 U/L (0-50) 06/24/25 21:36
Alkaline Phosphatase 93 U/L (38-126) 06/24/25 21:36
Most recent labs reviewed.
Micro Results:
06/24/25 22:05 Blood Culture - Preliminary
Blood/Venous No Growth in 72 hours- Final report to follow
06/24/25 21:56 Blood Culture - Preliminary
Blood/Venous No Growth in 72 hours- Final report to follow
06/27/25 16:30 Influenza Types A & B (MANUEL) - Final
Nasal Swab Influenza A Positive, NAAT
06/27/25 16:28 Streptococcus pneumoniae Antigen (M - Final
Urine Negative for Streptococcus pneumoniae antigen.
A negative result does not exclude infection with
Streptococcus pneumoniae. Clinical correlation is
recommended.
06/27/25 16:28 Legionella Urinary Antigen - Final
Urine Negative for Legionella pneumophila Serogroup 1 antigen.
A negative result does not rule out the possiblity of
Legionella infection due to other serogroups or species of
Legionella. Clinical correlation is recommended.
06/26/25 11:38 Respiratory Syncytial Virus Ag - Final
Nasal Swab Negative for Respiratory Syncytial Virus.
A false negative result may be obtained with a specimen
collected early in the acute phase. If symptoms persist, a
new specimen should be tested.
06/25/25 00:33 Urine Culture - Final
Urine NO GROWTH
06/24/25 21:36 Influenza Types A & B (MANUEL) - Final
Nasal Swab Negative for Influenza A & B, NAAT
Negative results must be combined with clinical observations
and patient history.
Nucleic Acid Amplification test (NAAT)performed on the
[employer] platform.
06/27/25 CXR: Stable moderate elevation right hemidiaphragm. Small bilateral pleural effusions, new from most recent radiograph of June 24, 2025.
06/24/25 CXR: Stable appearance of the chest, as described, without superimposed acute cardiopulmonary process.
--- NOTE | 2025-06-28 12:14 | W.PN.HOSP.TC ---
Today's Communication/Plan
-
Discharge today
Assessment / Plan
Assessment / Plan
Physical Exam
Gen-awake, alert, confused, NAD
HEENT-NC, AT, anicteric, clear oral mm
Neck-supple
CV-reg, no M, +S1/S2
Lungs-clear B/L
Abd-soft, NT, ND
Ext-no edema
Musculoskeletal-no cyanosis
Skin-warm and dry
Neuro-grossly non-focal
Psych-calm, cooperative
Assessment/Plan
Acute metabolic encephalopathy
-Improved
-suspect due to acute febrile illness in the setting of underlying dementia. Treat supportively.
Sepsis due to acute bronchitis
Influenza A
-source possibly pulmonary given presentation with cough. Sepsis characterized by confusion, acute encephalopathy, elevated lactic acid.
COVID and influenza negative. RSV negative
Initial two-view chest x-ray without infiltrates.
Blood cultures negative. Urine cultures negative.
Patient very poor historian due to underlying dementia and presentation with acute encephalopathy.
Recurrent fever so change Zosyn to Doxycycline to cover atypical pneumonia, urine legionella and strep Ag both negative, repeat COVID negative, repeat Flu positive for Influenza A, CXR. Appreciate ID.
Continue oseltamivir 75mg po bid x 5 days.
Small bilateral pleural effusions on chest x-ray from 06/27/25
Atelectasis
Essential hypertension -stable.
DM 2 with hyperglycemia -was on glipizide and metformin prior to admission. Hemoglobin A1c 7.3%
Currently on low resistance NovoLog corrective scale. Hold oral agents.
Hyperlipidemia -on atorvastatin.
Alzheimer's dementia
Glaucoma
History of melanoma
History of gout
DNR
PT consult -SNF recommended.
More than 30 minutes spent in discharge including
Final examination of the patient
Summarizing hospital stay
Instructions for continuing care to all relevant caregivers
Preparation of discharge records, prescriptions, and referral forms
Total time spent (in minutes): 40
Anticipated Discharge: Today
Subjective/Interval History
-
Date of Service: June 28, 2025
Patient was seen and examined. He reported feeling 'pretty good' and denied any new symptoms or complaints.
Objective Data
-
Labs:
Laboratory Results
06/28/25
09:34
WBC 5.8
Hgb 14.4
Hct 41.2
Plt Count 143
Sodium 133 L
Potassium 3.6
Chloride 98
Carbon Dioxide 26
BUN 15
Creatinine 1.0
Glucose 201 H
Calcium 8.7
Vital Signs:
Vital Signs
Temp Pulse Resp BP Pulse Ox
97.0 F 89 16 128/76 96
06/28/25 11:12 06/28/25 11:12 06/28/25 11:12 06/28/25 11:12 06/28/25 11:12
I&O
06/27/25 06/28/25 06/29/25
06:59 06:59 06:59
Intake Total 480 / 480 860 / 860
Output Total 1900 / 1900 1350 / 1350
Balance -1420 / -1420 -490 / -490
[2025-06-28] MEDS: NOVOLOG FLEXPEN-LOW RESISTANCE 2 UNITS SC (12:25)
--- NOTE | 2025-06-28 12:51 | CM ---
CM reviewed pt with attending- ready for dc
Pt flu+ 06/27, pt remains clinically accepted at [facility]
Call with spouse with update- she is in agreement with plan
IMM verbally reviewed over phone, copy left bedside for her visit later today
Medical necessity completed, update to pt bedside
Discharge Disposition- [facility] via [facility] [address] pickup
Phone- 3rd floor [phone] Fax- [phone]
[2025-06-28] MEDS: MAGNESIUM SULFATE 50 IV (13:53)
--- NOTE | 2025-06-28 14:51 | PTCARENOTE ---
Addendum entered by Yanira Lechuga RN 06/28/25 16:04:
Report given to SONY Giron.
Original Note:
This RN attempted to call report for DC to [facility], no answer. Call back # to [phone].
[2025-06-28 15:29] VITALS: BP 123/76
== END 2025-06-28 17:12 | DRG 871 ==
LOC: 2 NORTH 02:30
PROVIDERS: Hospitalist; ADMITTING PHYSICIAN Hospitalist; ATTENDING PHYSICIAN Hospitalist; CONSULT PHYSICIAN Internal Medicine Infectious Disease; EMERGENCY PHYSICIAN Emergency Medicine; FAMILY PHYSICIAN Family Medicine
DX: A41.9 Sepsis, unspecified organism (principal); G93.41 Metabolic encephalopathy; E87.20 Acidosis, unspecified; J10.1 Influenza due to other identified influenza virus with other respiratory manifestations; J20.8 Acute bronchitis due to other specified organisms; R65.20 Severe sepsis without septic shock; I10 Essential (primary) hypertension; E78.5 Hyperlipidemia, unspecified; G30.9 Alzheimer's disease, unspecified; H40.9 Unspecified glaucoma; Z66 Do not resuscitate; E11.65 Type 2 diabetes mellitus with hyperglycemia; E11.40 Type 2 diabetes mellitus with diabetic neuropathy, unspecified; Z85.820 Personal history of malignant melanoma of skin; Z11.52 Encounter for screening for COVID-19; F02.80 Dementia in other diseases classified elsewhere, unspecified severity, without behavioral disturbance, psychotic disturbance, mood disturbance, and anxiety
CPT/HCPCS: 71046; 80048; 80053; 81003; 81015; 82962; 83036; 83605; 83735; 85025; 85027; 87040; 87086; 87449; 87502; 87807; 87811; 87899; 96361; 96374; 97162; 97530; 99285